=== PATIENT | male | born 1945 | race Two or more races ===

== ENCOUNTER → 2017-07-08 | Outpatient (REF) | payer MEDICARE, OTHER ==
[2017-07-09 14:15] LABS: PSA TOTAL 2.6 ng/mL (0.0-4.0)
== END ==
LOC: M SFHCCLAY 07:27
PROVIDERS: ATTEND Nurse Practitioner Family
DX: N40.1 Benign prostatic hyperplasia with lower urinary tract symptoms (principal)

== ENCOUNTER → 2017-07-14 | Outpatient (REF) | payer MEDICARE, OTHER ==
[2017-07-14 12:34] LABS: MEAN CORPUSCULAR HEMOGLOBIN 30.2 pg (27.0-33.0); MEAN CORPUSCULAR HGB CONC 33.6 g/dl (32.0-36.5); MEAN CORPUSCULAR VOLUME 89.7 fl (80.0-96.0); RED CELL DISTRIBUTION WIDTH 13.5 % (11.5-14.5)
[2017-07-14 12:57] LABS: ALBUMIN 3.4 GM/DL (3.2-5.2); ALKALINE PHOSPHATASE 153 U/L (45-117); ALT/SGPT 23 U/L (12-78); ANION GAP 11 MEQ/L (8-16); AST/SGOT 8 U/L (15-37); BILIRUBIN,TOTAL 0.4 MG/DL (0.2-1.0); BLOOD UREA NITROGEN 23 MG/DL (7-18); CARBON DIOXIDE LEVEL 26 MEQ/L (21-32); CHLORIDE LEVEL 106 MEQ/L (98-107); CHOLESTEROL LEVEL 170 MG/DL (<200); CREATININE FOR GFR 0.94 MG/DL (0.70-1.30); FREE T4 1.32 NG/DL (0.76-1.46); GLOMERULAR FILTRATION RATE > 60.0 (>42); GLUCOSE, FASTING 157 MG/DL (83-110); POTASSIUM SERUM 4.3 MEQ/L (3.5-5.1); SODIUM LEVEL 143 MEQ/L (136-145); TOTAL PROTEIN 6.8 GM/DL (6.4-8.2); TRIGLYCERIDES LEVEL 93 MG/DL (<150)
== END ==
LOC: M LABDRAWC 11:41
PROVIDERS: ATTEND General Practice
DX: E78.00 Pure hypercholesterolemia, unspecified (principal); E11.9 Type 2 diabetes mellitus without complications; F32.9 Major depressive disorder, single episode, unspecified; K21.9 Gastro-esophageal reflux disease without esophagitis

== ENCOUNTER 2018-08-20 11:44 | Observation (INO) | payer MEDICARE, OTHER ==
[2018-08-20] MEDS: MOM 30ML SUSPENSION UDC PO (09:00)
[2018-08-20] MEDS ORDERED: ISOVUE-370 76% 100ML VIAL (Q9967) As Ordered (12:08)
[2018-08-20 12:15] LABS: HEMATOCRIT 28.1 % (42.0-52.0); HEMOGLOBIN 8.5 g/dl (13.5-17.5); MEAN CORPUSCULAR HEMOGLOBIN 23.7 pg (27.0-33.0); MEAN CORPUSCULAR HGB CONC 30.2 g/dl (32.0-36.5); MEAN CORPUSCULAR VOLUME 78.3 fl (80.0-96.0); PLATELET COUNT, AUTOMATED 281 10^3/uL (150-450); RED BLOOD COUNT 3.59 10^6/uL (4.30-6.10); RED CELL DISTRIBUTION WIDTH 15.9 % (11.5-14.5)
[2018-08-20] MEDS: NS 1,000 ML IV ×3 (12:15→16:15)
[2018-08-20 12:23] LABS: INR 1.04; PROTHROMBIN TIME 13.7 SECONDS (12.1-14.4)
[2018-08-20] MEDS: IBUPROFEN 600 MG TAB PO (12:30)
[2018-08-20 12:32] LABS: ANION GAP 6 MEQ/L (8-16); BLOOD UREA NITROGEN 22 MG/DL (7-18); CALCIUM LEVEL 8.3 MG/DL (8.8-10.2); CARBON DIOXIDE LEVEL 25 MEQ/L (21-32); CHLORIDE LEVEL 109 MEQ/L (98-107); CREATININE FOR GFR 1.14 MG/DL (0.70-1.30); GLOMERULAR FILTRATION RATE > 60.0 (>42); GLUCOSE, FASTING 211 MG/DL (70-100); POTASSIUM SERUM 4.6 MEQ/L (3.5-5.1); SODIUM LEVEL 140 MEQ/L (136-145)
[2018-08-20 13:36] LABS: CPK CREATINE PHOSPHOKINASE 237 U/L (39-308); MB/CK RELATIVE INDEX 1.14 (< OR =4); TROPONIN I < 0.02 NG/ML (< 0.10)
[2018-08-20] MEDS: KCL 20MEQ IN D5/NS 1000ML 1,000 ML IV (13:56)
[2018-08-20] MEDS ORDERED: ACETAMINOPHEN TAB 650MG DOSE (2X325MG) PO (14:00)
[2018-08-20] MEDS ORDERED: LEVALBUTEROL 1.25 MG/0.5 ML CONCENTRATE NEB NEB (14:00)
[2018-08-20] MEDS ORDERED: ONDANSETRON 4MG/2ML VIAL (J2405) IV (14:00)
[2018-08-20] MEDS ORDERED: NITROGLYCERIN 0.4 MG SUBL TABLET SL (14:00)
[2018-08-20] MEDS: LEVALBUTEROL 1.25 MG/0.5 ML CONCENTRATE NEB NEB ×2 (14:30→20:40)
[2018-08-20 16:31] LABS: BEDSIDE GLUCOSE 205 MG/DL (83-110)
[2018-08-20] MEDS: ISOSORBIDE MON. (IMDUR) 30 MG XR TAB PO (16:37)
[2018-08-20] MEDS ORDERED: GLUCAGON FOR INJ 1 MG VIAL (J1610) SC (16:45)
[2018-08-20] MEDS ORDERED: DEXTROSE 50% 50 ML SYRINGE IV (16:45)
[2018-08-20] MEDS ORDERED: GLUCOSE 4 GM CHEW TABLET PO (16:45)
[2018-08-20] MEDS: HumaLOG INSULIN (NovoLOG) PER UNIT SC ×2 (17:48→21:00)
[2018-08-20] MEDS: KETOROLAC 30 MG/ML VIAL (J1885) IV ×2 (17:49→23:25)
[2018-08-20 19:58] LABS: BEDSIDE GLUCOSE 224 MG/DL (83-110)
[2018-08-20] MEDS: FINASTERIDE 5 MG TAB PO (21:11)
[2018-08-20] MEDS: metFORMIN XR 500MG TAB *GLUCOPHAGE XR PO (21:11)
[2018-08-20] MEDS: CARVedilol 6.25 MG TAB PO (21:12)
[2018-08-20] MEDS: DOCUSATE SODIUM 100 MG CAP PO (21:12)
[2018-08-20] MEDS: TAMSULOSIN 0.4 MG CAP PO (21:13)
[2018-08-20] MEDS: LEVEMIR (INSULIN DETEMIR) 1 UNITS/0.01ML SC (21:13)
[2018-08-21] MEDS: LEVALBUTEROL 1.25 MG/0.5 ML CONCENTRATE NEB NEB ×3 (02:06→13:13)
[2018-08-21] MEDS: KETOROLAC 30 MG/ML VIAL (J1885) IV ×2 (05:51→11:41)
[2018-08-21 06:02] LABS: HEMATOCRIT 24.2 % (42.0-52.0); HEMOGLOBIN 7.3 g/dl (13.5-17.5); MEAN CORPUSCULAR HEMOGLOBIN 23.2 pg (27.0-33.0); MEAN CORPUSCULAR HGB CONC 30.2 g/dl (32.0-36.5); MEAN CORPUSCULAR VOLUME 76.8 fl (80.0-96.0); PLATELET COUNT, AUTOMATED 235 10^3/uL (150-450); RED BLOOD COUNT 3.15 10^6/uL (4.30-6.10); RED CELL DISTRIBUTION WIDTH 15.9 % (11.5-14.5); WHITE BLOOD COUNT 7.4 10^3/uL (4.0-10.0)
[2018-08-21 06:21] LABS: BEDSIDE GLUCOSE 145 MG/DL (83-110)
[2018-08-21] MEDS: MOM 30ML SUSPENSION UDC PO (08:04)
[2018-08-21] MEDS: PANTOPRAZOLE 40MG TAB (PROTONIX) PO (08:12)
[2018-08-21] MEDS: metFORMIN XR 500MG TAB *GLUCOPHAGE XR PO (08:12)
[2018-08-21] MEDS: HumaLOG INSULIN (NovoLOG) PER UNIT SC ×2 (08:12→11:42)
[2018-08-21] MEDS: ASPIRIN 81 MG ENTERIC TAB PO (08:13)
[2018-08-21] MEDS: TAMSULOSIN 0.4 MG CAP PO (08:13)
[2018-08-21] MEDS: CARVedilol 6.25 MG TAB PO (08:13)
[2018-08-21] MEDS: LOSARTAN 50 MG TAB PO (08:13)
[2018-08-21] MEDS: ISOSORBIDE MON. (IMDUR) 30 MG XR TAB PO (08:13)
[2018-08-21] MEDS: GLIMEPIRIDE 2 MG TAB PO (08:13)
[2018-08-21] MEDS: CLOPIDOGREL 75 MG TAB PO (08:14)
[2018-08-21] MEDS: LEVEMIR (INSULIN DETEMIR) 1 UNITS/0.01ML SC (08:14)
[2018-08-21] MEDS: DOCUSATE SODIUM 100 MG CAP PO (08:15)
[2018-08-21] MEDS: ANALGESIC BALM CRM 120 GM TOP ×2 (09:00→11:28)
[2018-08-21 10:59] LABS: IMMEDIATE SPIN CROSSMATCH 1 1
[2018-08-21 11:31] LABS: BEDSIDE GLUCOSE 202 MG/DL (83-110)
== END 2018-08-21 14:38 | disposition home or self-care (01) ==
LOC: M ED 11:44 → M ED INP 15:36 → M MSPAV 16:10
DX: S22.31XA Fracture of one rib, right side, initial encounter for closed fracture (principal); S27.0XXA Traumatic pneumothorax, initial encounter; S09.90XA Unspecified injury of head, initial encounter; W13.2XXA Fall from, out of or through roof, initial encounter; Y92.89 Other specified places as the place of occurrence of the external cause; Y93.9 Activity, unspecified; D64.9 Anemia, unspecified; E11.9 Type 2 diabetes mellitus without complications; I10 Essential (primary) hypertension; I25.2 Old myocardial infarction; Z79.02 Long term (current) use of antithrombotics/antiplatelets; Z88.0 Allergy status to penicillin; Z88.2 Allergy status to sulfonamides
CPT/HCPCS: 36430

== ENCOUNTER → 2019-04-05 | Outpatient (REF) | payer MEDICARE, OTHER ==
[~2019-04-05] MED LIST: BYET1INJ SC; CARV6.25 PO; CLOP75TA2 PO; ECOT81TA5 PO; FINA5TAB2 PO; FLOM0.4C39 PO; GLIM4TAB PO; GLUCTAB PO; INSUDET SC; ISOS30TA4 PO; LOSA100T50 PO; MAGO400T PO; NITR4TASL SL; OMEP10CASR PO; OMEP20CA3 PO; VITMTA PO
== END ==
LOC: M SFHCCLAY 07:28
PROVIDERS: ATTEND Nurse Practitioner Family
DX: R97.20 Elevated prostate specific antigen [PSA] (principal)

== ENCOUNTER → 2019-07-19 | Outpatient (REF) | payer MEDICARE, OTHER ==
[~2019-07-19] MED LIST changes: -OMEP20CA3 PO; +OMEP20CA4 PO
[2019-07-19 11:26] LABS: APPEARANCE, URINE CLEAR (CLEAR); BACTERIA, URINE AUTO NEGATIVE (NEGATIVE); BILIRUBIN, URINE AUTO NEGATIVE (NEGATIVE); BLOOD, URINE BLOOD NEGATIVE (NEGATIVE); COLOR, URINE YELLOW (YELLOW); GLUCOSE, URINE (UA) AUTO 1+ mg/dL (NEGATIVE); HEMATOCRIT 34.3 % (42.0-52.0); HEMOGLOBIN 10.5 g/dl (13.5-17.5); KETONE, URINE AUTO NEGATIVE (NEGATIVE); LEUKOCYTE ESTERASE, URINE AUTO NEGATIVE (NEGATIVE); MEAN CORPUSCULAR HEMOGLOBIN 24.7 pg (27.0-33.0); MEAN CORPUSCULAR HGB CONC 30.6 g/dl (32.0-36.5); MEAN CORPUSCULAR VOLUME 80.7 fl (80.0-96.0); NITRITE, URINE AUTO NEGATIVE (NEGATIVE); PLATELET COUNT, AUTOMATED 260 10^3/uL (150-450); PROTEIN, URINE AUTO NEGATIVE (NEGATIVE); RBC, URINE AUTO 0 /HPF (0-3); RED BLOOD COUNT 4.25 10^6/uL (4.30-6.10); SPECIFIC GRAVITY URINE AUTO 1.016 (1.002-1.035); SQUAMOUS EPITHELIAL CELL UR AU 0 /HPF (0-6); UROBILINOGEN, URINE AUTO 0.2 mg/dL (0.0-2.0); WBC, URINE AUTO 0 /HPF (0-3); WHITE BLOOD COUNT 4.9 10^3/uL (4.0-10.0)
[2019-07-19 11:39] LABS: ALBUMIN 3.5 GM/DL (3.2-5.2); ALT/SGPT 16 U/L (12-78); BILIRUBIN,TOTAL 0.3 MG/DL (0.2-1.0); BLOOD UREA NITROGEN 21 MG/DL (7-18); CALCIUM LEVEL 8.8 MG/DL (8.8-10.2); CARBON DIOXIDE LEVEL 26 MEQ/L (21-32); CHLORIDE LEVEL 111 MEQ/L (98-107); CHOLESTEROL LEVEL 145 MG/DL (<200); CHOLESTEROL RISK RATIO 2.959 (<5); CREATININE FOR GFR 1.09 MG/DL (0.70-1.30); FREE T4 1.25 NG/DL (0.76-1.46); GLOMERULAR FILTRATION RATE > 60.0 (>42); GLUCOSE, FASTING 105 MG/DL (70-100); HDL CHOLESTEROL 49 MG/DL (>40); LDL CHOLESTEROL 78 MG/DL (<100); NON-HDL-C 96 MG/DL; POTASSIUM SERUM 4.6 MEQ/L (3.5-5.1); SODIUM LEVEL 144 MEQ/L (136-145); TOTAL PROTEIN 6.3 GM/DL (6.4-8.2); TRIGLYCERIDES LEVEL 89 MG/DL (<150)
[2019-07-19 11:42] LABS: VITAMIN B12 LEVEL 326 PG/ML (247-911)
[2019-07-19 11:45] LABS: HEMOGLOBIN A1c 7.2 %
[2019-07-19 12:16] LABS: MALB URINE SIEMENS 38.2 MG/L
== END ==
LOC: M LABDRAWC 11:08
PROVIDERS: ATTEND General Practice
DX: E11.9 Type 2 diabetes mellitus without complications (principal); D64.9 Anemia, unspecified; F32.9 Major depressive disorder, single episode, unspecified; E78.00 Pure hypercholesterolemia, unspecified

== ENCOUNTER → 2020-04-23 | Outpatient (REF) | payer MEDICARE, OTHER ==
[~2020-04-23] MED LIST changes: -GLIM4TAB PO; +GLIM4TAB5 PO; +ISOS1TAB35 PO; -ISOS30TA4 PO; +OMEP1CAP73 PO; -OMEP20CA4 PO
== END ==
LOC: M SFHCCLAY 09:32
PROVIDERS: ATTEND Nurse Practitioner Family
DX: Z12.5 Encounter for screening for malignant neoplasm of prostate (principal); R97.20 Elevated prostate specific antigen [PSA]

== ENCOUNTER → 2020-07-29 | Outpatient (REF) | payer MEDICARE, OTHER ==
[~2020-07-29] MED LIST changes: -ISOS1TAB35 PO; +ISOS30TA4 PO
== END ==
LOC: M SFHCCLAY 16:14
PROVIDERS: ATTEND Nurse Practitioner Family
DX: R97.20 Elevated prostate specific antigen [PSA] (principal)

== ENCOUNTER → 2021-03-13 | Outpatient (REF) | payer MEDICARE, OTHER ==
[~2021-03-13] MED LIST changes: +ISOS1TAB35 PO; -ISOS30TA4 PO
[2021-03-13 10:31] LABS: APPEARANCE, URINE CLEAR (CLEAR); BACTERIA, URINE AUTO NEGATIVE (NEGATIVE); BILIRUBIN, URINE AUTO NEGATIVE (NEGATIVE); BLOOD, URINE BLOOD NEGATIVE (NEGATIVE); COLOR, URINE YELLOW (YELLOW); GLUCOSE, URINE (UA) AUTO NEGATIVE (NEGATIVE); HEMATOCRIT 27.6 % (42.0-52.0); KETONE, URINE AUTO NEGATIVE (NEGATIVE); LEUKOCYTE ESTERASE, URINE AUTO NEGATIVE (NEGATIVE); MEAN CORPUSCULAR HEMOGLOBIN 21.5 pg (27.0-33.0); MEAN CORPUSCULAR VOLUME 74.2 fl (80.0-96.0); NITRITE, URINE AUTO NEGATIVE (NEGATIVE); PLATELET COUNT, AUTOMATED 363 10^3/uL (150-450); PROTEIN, URINE AUTO NEGATIVE (NEGATIVE); RBC, URINE AUTO 1 /HPF (0-3); RED BLOOD COUNT 3.72 10^6/uL (4.30-6.10); SPECIFIC GRAVITY URINE AUTO 1.012 (1.002-1.035); SQUAMOUS EPITHELIAL CELL UR AU 0 /HPF (0-6); UROBILINOGEN, URINE AUTO 0.2 mg/dL (0.0-2.0); WBC, URINE AUTO 5 /HPF (0-3); WHITE BLOOD COUNT 4.8 10^3/uL (4.0-10.0)
[2021-03-13 11:02] LABS: HEMOGLOBIN A1c 7.8 %
[2021-03-13 11:09] LABS: ALT/SGPT 16 U/L (12-78); BILIRUBIN,TOTAL 0.3 MG/DL (0.2-1.0); BLOOD UREA NITROGEN 15 MG/DL (7-18); CALCIUM LEVEL 8.6 MG/DL (8.8-10.2); CARBON DIOXIDE LEVEL 25 MEQ/L (21-32); CHLORIDE LEVEL 110 MEQ/L (98-107); CREATININE FOR GFR 0.91 MG/DL (0.70-1.30); GLOMERULAR FILTRATION RATE > 60.0 (>42); GLUCOSE, FASTING 86 MG/DL (70-100); POTASSIUM SERUM 4.4 MEQ/L (3.5-5.1); SODIUM LEVEL 141 MEQ/L (136-145)
[2021-03-13 11:10] LABS: ALBUMIN 3.4 GM/DL (3.2-5.2); CHOLESTEROL LEVEL 158 MG/DL (<200); CHOLESTEROL RISK RATIO 2.771 (<5); FREE T4 1.35 NG/DL (0.76-1.46); HDL CHOLESTEROL 57 MG/DL (>40); LDL CHOLESTEROL 84 MG/DL (<100); NON-HDL-C 101 MG/DL; TOTAL PROTEIN 6.6 GM/DL (6.4-8.2); TRIGLYCERIDES LEVEL 83 MG/DL (<150); VITAMIN B12 LEVEL 341 PG/ML (247-911)
[2021-03-13 11:18] LABS: CREATININE, URINE 75.9 MG/DL; MAU/CREAT RATIO 64.5 MCG/MG (0.0-30.0)
== END ==
LOC: M LABDRAWC 07:49
PROVIDERS: ATTEND General Practice
DX: E11.9 Type 2 diabetes mellitus without complications (principal); D64.9 Anemia, unspecified; E78.00 Pure hypercholesterolemia, unspecified; F32.9 Major depressive disorder, single episode, unspecified

== ENCOUNTER → 2021-08-07 | Outpatient (REF) | payer MEDICARE, OTHER ==
[2021-08-07 11:43] LABS: APPEARANCE, URINE CLEAR (CLEAR); BACTERIA, URINE AUTO NEGATIVE (NEGATIVE); BILIRUBIN, URINE AUTO NEGATIVE (NEGATIVE); BLOOD, URINE BLOOD NEGATIVE (NEGATIVE); COLOR, URINE STRAW (YELLOW); GLUCOSE, URINE (UA) AUTO NEGATIVE (NEGATIVE); KETONE, URINE AUTO NEGATIVE (NEGATIVE); LEUKOCYTE ESTERASE, URINE AUTO NEGATIVE (NEGATIVE); NITRITE, URINE AUTO NEGATIVE (NEGATIVE); PROTEIN, URINE AUTO NEGATIVE (NEGATIVE); RBC, URINE AUTO 0 /HPF (0-3); SQUAMOUS EPITHELIAL CELL UR AU 0 /HPF (0-6); UROBILINOGEN, URINE AUTO 0.2 mg/dL (0.0-2.0); WBC, URINE AUTO 0 /HPF (0-3)
[2021-08-07 11:45] LABS: HEMATOCRIT 29.3 % (42.0-52.0); HEMOGLOBIN 8.6 g/dl (13.5-17.5); MEAN CORPUSCULAR HEMOGLOBIN 22.6 pg (27.0-33.0); MEAN CORPUSCULAR HGB CONC 29.4 g/dl (32.0-36.5); MEAN CORPUSCULAR VOLUME 76.9 fl (80.0-96.0); PLATELET COUNT, AUTOMATED 323 10^3/uL (150-450); RED BLOOD COUNT 3.81 10^6/uL (4.30-6.10); WHITE BLOOD COUNT 4.9 10^3/uL (4.0-10.0)
[2021-08-07 12:12] LABS: HEMOGLOBIN A1c 7.8 %
[2021-08-07 12:18] LABS: ALBUMIN 3.4 GM/DL (3.2-5.2); ALT/SGPT 13 U/L (12-78); BILIRUBIN,TOTAL 0.4 MG/DL (0.2-1.0); BLOOD UREA NITROGEN 19 MG/DL (7-18); CALCIUM LEVEL 8.5 MG/DL (8.8-10.2); CARBON DIOXIDE LEVEL 28 MEQ/L (21-32); CHLORIDE LEVEL 109 MEQ/L (98-107); CHOLESTEROL LEVEL 154 MG/DL (<200); CHOLESTEROL RISK RATIO 2.851 (<5); CREATININE FOR GFR 1.14 MG/DL (0.70-1.30); FREE T4 1.26 NG/DL (0.76-1.46); GLOMERULAR FILTRATION RATE > 60.0 (>42); GLUCOSE, FASTING 97 MG/DL (70-100); HDL CHOLESTEROL 54 MG/DL (>40); LDL CHOLESTEROL 77 MG/DL (<100); MALB URINE SIEMENS 25.3 MG/L; MAU/CREAT RATIO 47.7 MCG/MG (0.0-30.0); NON-HDL-C 100 MG/DL; POTASSIUM SERUM 4.6 MEQ/L (3.5-5.1); SODIUM LEVEL 140 MEQ/L (136-145); TOTAL PROTEIN 6.6 GM/DL (6.4-8.2); TRIGLYCERIDES LEVEL 116 MG/DL (<150); VITAMIN B12 LEVEL 339 PG/ML (247-911)
== END ==
LOC: M LABDRAWC 11:22
PROVIDERS: ATTEND General Practice
DX: E11.9 Type 2 diabetes mellitus without complications (principal); K21.9 Gastro-esophageal reflux disease without esophagitis; F32.9 Major depressive disorder, single episode, unspecified; E78.00 Pure hypercholesterolemia, unspecified

== ENCOUNTER → 2022-03-20 | Outpatient (REF) | payer MEDICARE, OTHER ==
[~2022-03-20] MED LIST changes: +AMLO1TAB24 PO; +ATOR40TA75 PO; +CARV25TA PO; +IRON27TA2 PO; +LOSA100T45 PO; -LOSA100T50 PO; +MAGN400T2 PO; +METF-838 PO
[2022-03-20 11:38] LABS: APPEARANCE, URINE CLEAR (CLEAR); BACTERIA, URINE AUTO NEGATIVE (NEGATIVE); BILIRUBIN, URINE AUTO NEGATIVE (NEGATIVE); BLOOD, URINE BLOOD NEGATIVE (NEGATIVE); COLOR, URINE YELLOW (YELLOW); GLUCOSE, URINE (UA) AUTO 3+ mg/dL (NEGATIVE); KETONE, URINE AUTO NEGATIVE (NEGATIVE); LEUKOCYTE ESTERASE, URINE AUTO NEGATIVE (NEGATIVE); NITRITE, URINE AUTO NEGATIVE (NEGATIVE); PROTEIN, URINE AUTO NEGATIVE (NEGATIVE); RBC, URINE AUTO 0 /HPF (0-3); SPECIFIC GRAVITY URINE AUTO 1.013 (1.002-1.035); SQUAMOUS EPITHELIAL CELL UR AU 0 /HPF (0-6); UROBILINOGEN, URINE AUTO 0.2 mg/dL (0.0-2.0); WBC, URINE AUTO 0 /HPF (0-3)
[2022-03-20 11:41] LABS: HEMATOCRIT 31.9 % (42.0-52.0); MEAN CORPUSCULAR HEMOGLOBIN 26.6 pg (27.0-33.0); MEAN CORPUSCULAR HGB CONC 31.3 g/dl (32.0-36.5); MEAN CORPUSCULAR VOLUME 84.8 fl (80.0-96.0); PLATELET COUNT, AUTOMATED 299 10^3/uL (150-450); RED BLOOD COUNT 3.76 10^6/uL (4.30-6.10); WHITE BLOOD COUNT 4.3 10^3/uL (4.0-10.0)
[2022-03-20 12:16] LABS: ALBUMIN 3.4 GM/DL (3.2-5.2); ALT/SGPT 15 U/L (12-78); BILIRUBIN,TOTAL 0.3 MG/DL (0.2-1.0); BLOOD UREA NITROGEN 23 MG/DL (7-18); CALCIUM LEVEL 9.2 MG/DL (8.8-10.2); CARBON DIOXIDE LEVEL 28 MEQ/L (21-32); CHLORIDE LEVEL 113 MEQ/L (98-107); CHOLESTEROL LEVEL 162 MG/DL (<200); CHOLESTEROL RISK RATIO 3.446 (<5); CREATININE FOR GFR 1.13 MG/DL (0.70-1.30); GLOMERULAR FILTRATION RATE > 60.0 (>42); GLUCOSE, FASTING 116 MG/DL (70-100); HDL CHOLESTEROL 47 MG/DL (>40); HEMOGLOBIN A1c 8.6 %; LDL CHOLESTEROL 95 MG/DL (<100); NON-HDL-C 115 MG/DL; POTASSIUM SERUM 4.8 MEQ/L (3.5-5.1); SODIUM LEVEL 144 MEQ/L (136-145); TOTAL PROTEIN 6.6 GM/DL (6.4-8.2); TRIGLYCERIDES LEVEL 102 MG/DL (<150); VITAMIN B12 LEVEL 854 PG/ML (247-911)
[2022-03-20 12:17] LABS: CREATININE, URINE 86.7 MG/DL; MALB URINE SIEMENS 73.1 MG/L; MAU/CREAT RATIO 84.3 MCG/MG (0.0-30.0)
== END ==
LOC: M LABDRAWC 11:26
PROVIDERS: ATTEND General Practice
DX: E11.9 Type 2 diabetes mellitus without complications (principal); K21.9 Gastro-esophageal reflux disease without esophagitis; M62.838 Other muscle spasm; F32.9 Major depressive disorder, single episode, unspecified; E78.00 Pure hypercholesterolemia, unspecified

== ENCOUNTER 2022-03-21 18:02 | Observation (INO) | payer MEDICARE, OTHER ==
[~2022-03-21] VITALS: Ht 175.3 cm; Wt 86.0 kg
[~2022-03-21 18:02] MED LIST changes: -AMLO1TAB24 PO; -ATOR40TA75 PO; -CARV25TA PO; -IRON27TA2 PO; -MAGN400T2 PO; -METF-838 PO
[2022-03-21 19:13] LABS: BASO % 0.7 % (0.0-1.0); EOS # 0.3 10^3/uL (0.0-0.5); HEMOGLOBIN 10.1 g/dl (13.5-17.5); LYMPH # 1.2 10^3/uL (1.5-5.0); LYMPH % 20.7 % (24.0-44.0); MEAN CORPUSCULAR HEMOGLOBIN 26.6 pg (27.0-33.0); MEAN CORPUSCULAR HGB CONC 31.6 g/dl (32.0-36.5); MEAN CORPUSCULAR VOLUME 84.4 fl (80.0-96.0); MONO # 0.5 10^3/uL (0.0-0.8); MONO % 8.8 % (2.0-8.0); NEUTROPHILS # 3.6 10^3/uL (1.5-8.5); NEUTROPHILS % 64.6 % (36.0-66.0); PLATELET COUNT, AUTOMATED 272 10^3/uL (150-450); RED BLOOD COUNT 3.79 10^6/uL (4.30-6.10); WHITE BLOOD COUNT 5.6 10^3/uL (4.0-10.0)
[2022-03-21 19:35] LABS: CALCIUM LEVEL 8.9 MG/DL (8.8-10.2); CREATININE FOR GFR 1.33 MG/DL (0.70-1.30); GLOMERULAR FILTRATION RATE 55.4 (>42); INR 0.88; PARTIAL THROMBOPLASTIN TIME 26.8 SECONDS (25.9-37.0); POTASSIUM SERUM 4.1 MEQ/L (3.5-5.1); PROTHROMBIN TIME 12.3 SECONDS (12.7-14.5)
[2022-03-21 19:38] LABS: CK-MB VALUE MASS < 1.0 NG/ML (<3.6); CPK CREATINE PHOSPHOKINASE 42 U/L (39-308); MB/CK RELATIVE INDEX 2.38 (< OR =4)
[2022-03-21] MEDS: INSULIN LISPRO (NovoLOG) PER UNIT SC SCH (21:00)
[2022-03-21] MEDS ORDERED: CARV25TA PO (23:04)
[2022-03-21] MEDS ORDERED: AMLO1TAB24 PO (23:04)
[2022-03-21] MEDS ORDERED: METF-838 PO (23:04)
[2022-03-21] MEDS ORDERED: MAGN400T2 PO (23:04)
[2022-03-21] MEDS ORDERED: IRON27TA2 PO (23:04)
[2022-03-21] MEDS ORDERED: HOME MED LIST COMPLETE! XX SCH (23:05)
[2022-03-21] MEDS ORDERED: MAALOX 30 ML SUSP *UDC PO PRN (23:40)
[2022-03-21] MEDS ORDERED: MOM 30ML SUSPENSION UDC PO PRN (23:40)
[2022-03-21] MEDS ORDERED: NITROGLYCERIN 0.4 MG SUBL TABLET SL PRN (23:45)
[2022-03-21] MEDS ORDERED: ATORVASTATIN 20 MG TAB PO ONE (23:45)
[2022-03-21] MEDS ORDERED: NS 1,000 ML IV ONE (23:45)
[2022-03-22 00:03] LABS: CHOLESTEROL RISK RATIO 3.3 (<5)
[2022-03-22] MEDS ORDERED: GLUCOSE 4GM CHEW TABLET PO PRN (00:05)
[2022-03-22] MEDS ORDERED: GLUCAGON INJ 1MG VIAL SC PRN (00:05)
[2022-03-22] MEDS ORDERED: DEXTROSE 50% 50 ML SYRINGE IV PRN (00:05)
[2022-03-22] MEDS: FINASTERIDE 5MG TAB PO SCH ×2 (00:29→22:03)
[2022-03-22] MEDS: ACETAMINOPHEN TAB 650MG DOSE (2X325MG) PO PRN ×3 (00:30→22:11)
[2022-03-22 00:31] LABS: APPEARANCE, URINE CLEAR (CLEAR); BACTERIA, URINE AUTO NEGATIVE (NEGATIVE); BILIRUBIN, URINE AUTO NEGATIVE (NEGATIVE); BLOOD, URINE BLOOD NEGATIVE (NEGATIVE); COLOR, URINE YELLOW (YELLOW); GLUCOSE, URINE (UA) AUTO 2+ mg/dL (NEGATIVE); KETONE, URINE AUTO NEGATIVE (NEGATIVE); LEUKOCYTE ESTERASE, URINE AUTO NEGATIVE (NEGATIVE); NITRITE, URINE AUTO NEGATIVE (NEGATIVE); PROTEIN, URINE AUTO NEGATIVE (NEGATIVE); RBC, URINE AUTO 0 /HPF (0-3); SQUAMOUS EPITHELIAL CELL UR AU 0 /HPF (0-6); UROBILINOGEN, URINE AUTO 0.2 mg/dL (0.0-2.0); WBC, URINE AUTO 1 /HPF (0-3)
[2022-03-22 00:55] LABS: RSV AMPLIFICATION NEGATIVE (NEGATIVE)
[2022-03-22 00:59] LABS: POTASSIUM RANDOM URINE 22.8 MEQ/L; TOTAL PROTEIN,RANDOM URINE 13.7 MG/DL (0.0-12.0)
[2022-03-22] MEDS ORDERED: **hydrALAZINE HCL** 25 MG TAB PO ONE (01:30)
[2022-03-22 04:59] VITALS: BP 160/59
[2022-03-22 06:46] LABS: HEMOGLOBIN 9.8 g/dl (13.5-17.5); MEAN CORPUSCULAR HEMOGLOBIN 26.6 pg (27.0-33.0); MEAN CORPUSCULAR HGB CONC 31.6 g/dl (32.0-36.5); MEAN CORPUSCULAR VOLUME 84.2 fl (80.0-96.0); PLATELET COUNT, AUTOMATED 260 10^3/uL (150-450); RED BLOOD COUNT 3.68 10^6/uL (4.30-6.10)
[2022-03-22 07:05] LABS: BLOOD UREA NITROGEN 20 MG/DL (7-18); CALCIUM LEVEL 9.1 MG/DL (8.8-10.2); CARBON DIOXIDE LEVEL 25 MEQ/L (21-32); CHLORIDE LEVEL 111 MEQ/L (98-107); GLOMERULAR FILTRATION RATE > 60.0 (>42); GLUCOSE, FASTING 240 MG/DL (70-100); MAGNESIUM LEVEL 1.9 MG/DL (1.8-2.4); POTASSIUM SERUM 4.4 MEQ/L (3.5-5.1); SODIUM LEVEL 142 MEQ/L (136-145)
[2022-03-22 07:06] LABS: HEMOGLOBIN A1c 8.3 %
[2022-03-22] MEDS: INSULIN LISPRO (NovoLOG) PER UNIT SC SCH ×4 (08:29→21:00)
[2022-03-22] MEDS: LEVEMIR (INSULIN DETEMIR) 1 UNITS/0.01ML SC SCH (08:30)
[2022-03-22] MEDS: LOSARTAN 50MG TABLET PO SCH (08:30)
[2022-03-22] MEDS: CARVedilol 12.5 MG TAB PO SCH ×2 (08:31→22:04)
[2022-03-22] MEDS: OMEPRAZOLE 20MG CAP PO SCH (08:31)
[2022-03-22] MEDS: TAMSULOSIN 0.4 MG CAP PO SCH ×2 (08:32→22:03)
[2022-03-22] MEDS: DOCUSATE SODIUM 100MG CAPSULE PO SCH ×2 (08:32→22:00)
[2022-03-22] MEDS: MAGNESIUM OXIDE 400MG TAB (MAG-OX) PO SCH (08:32)
[2022-03-22] MEDS: ASPIRIN 81MG ENTERIC TABLET PO SCH (08:32)
[2022-03-22] MEDS: CLOPIDOGREL 75 MG TAB PO SCH (08:32)
[2022-03-22] MEDS: ENOXAPARIN 40MG/0.4ML SYRINGE (J1650 PER 10MG) SC SCH (09:57)
[2022-03-22 14:00] VITALS: BP 162/62
[2022-03-22] MEDS ORDERED: ISOSORBIDE MON. (IMDUR) 30 MG XR TAB PO SCH (21:00)
[2022-03-22] MEDS ORDERED: amLODIPine 5 MG TAB PO SCH (21:00)
[2022-03-22] MEDS ORDERED: ATORVASTATIN 20 MG TAB PO SCH (21:00)
[2022-03-22 22:00] VITALS: BP 159/59
[2022-03-23 06:00] VITALS: BP 138/57
[2022-03-23] MEDS: ENOXAPARIN 40MG/0.4ML SYRINGE (J1650 PER 10MG) SC SCH (08:06)
[2022-03-23] MEDS: LEVEMIR (INSULIN DETEMIR) 1 UNITS/0.01ML SC SCH (08:07)
[2022-03-23] MEDS: INSULIN LISPRO (NovoLOG) PER UNIT SC SCH ×2 (08:08→12:01)
[2022-03-23 08:09] VITALS: BP 141/58
[2022-03-23] MEDS: ACETAMINOPHEN TAB 650MG DOSE (2X325MG) PO PRN (08:09)
[2022-03-23] MEDS: LOSARTAN 50MG TABLET PO SCH (08:09)
[2022-03-23] MEDS: ASPIRIN 81MG ENTERIC TABLET PO SCH (08:10)
[2022-03-23] MEDS: CARVedilol 12.5 MG TAB PO SCH (08:10)
[2022-03-23] MEDS: MAGNESIUM OXIDE 400MG TAB (MAG-OX) PO SCH (08:10)
[2022-03-23] MEDS: DOCUSATE SODIUM 100MG CAPSULE PO SCH (08:10)
[2022-03-23] MEDS ORDERED: ATOR40TA75 PO (08:10)
[2022-03-23] MEDS: CLOPIDOGREL 75 MG TAB PO SCH (08:11)
[2022-03-23] MEDS: TAMSULOSIN 0.4 MG CAP PO SCH (08:11)
[2022-03-23] MEDS: OMEPRAZOLE 20MG CAP PO SCH (08:11)
== END 2022-03-23 12:36 | disposition home or self-care (01) ==
LOC: M ED 18:02 → EDBD 18:02 → M ED INP 18:03 → M MSPAV 03-22 02:22
PROVIDERS: ADMIT Internal Medicine; ATTEND Internal Medicine
DX: I63.9 Cerebral infarction, unspecified (principal); I65.21 Occlusion and stenosis of right carotid artery; R29.700 NIHSS score 0; I11.9 Hypertensive heart disease without heart failure; N17.9 Acute kidney failure, unspecified; I25.2 Old myocardial infarction; E11.9 Type 2 diabetes mellitus without complications; I25.10 Atherosclerotic heart disease of native coronary artery without angina pectoris; K21.9 Gastro-esophageal reflux disease without esophagitis; N40.0 Benign prostatic hyperplasia without lower urinary tract symptoms; Z98.61 Coronary angioplasty status; Z87.891 Personal history of nicotine dependence; Z79.899 Other long term (current) drug therapy; Z79.82 Long term (current) use of aspirin; Z79.02 Long term (current) use of antithrombotics/antiplatelets; Z79.4 Long term (current) use of insulin; Z79.84 Long term (current) use of oral hypoglycemic drugs; Z88.0 Allergy status to penicillin; Z88.2 Allergy status to sulfonamides
CPT/HCPCS: 36415; 70450; 70544; 70547; 70551; 71045; 80048; 80061; 81001; 82550; 82553; 82570; 83036; 83735; 83935; 84133; 84156; 84300; 84484; 85025; 85027; 85610; 85730; 87631; 93005; 93041; 93306; 94760; 96360; 96361; 96372; 97161; 97165; 99285; G0378; J1650; J1815

== ENCOUNTER → 2022-06-02 | Outpatient (REF) | payer MEDICARE, OTHER ==
[~2022-06-02] MED LIST changes: +AMLO1TAB24 PO; +ATOR40TA75 PO; +CARV25TA PO; +IRON27TA2 PO; +MAGN400T2 PO; +METF-838 PO
[2022-06-02 13:22] LABS: HEMATOCRIT 28.9 % (42.0-52.0); MEAN CORPUSCULAR HEMOGLOBIN 26.3 pg (27.0-33.0); MEAN CORPUSCULAR HGB CONC 31.1 g/dl (32.0-36.5); MEAN CORPUSCULAR VOLUME 84.5 fl (80.0-96.0); PLATELET COUNT, AUTOMATED 265 10^3/uL (150-450); RED BLOOD COUNT 3.42 10^6/uL (4.30-6.10); WHITE BLOOD COUNT 4.6 10^3/uL (4.0-10.0)
[2022-06-02 13:30] LABS: APPEARANCE, URINE CLEAR (CLEAR); BACTERIA, URINE AUTO NEGATIVE (NEGATIVE); BILIRUBIN, URINE AUTO NEGATIVE (NEGATIVE); BLOOD, URINE BLOOD NEGATIVE (NEGATIVE); COLOR, URINE YELLOW (YELLOW); GLUCOSE, URINE (UA) AUTO 1+ mg/dL (NEGATIVE); KETONE, URINE AUTO NEGATIVE (NEGATIVE); LEUKOCYTE ESTERASE, URINE AUTO NEGATIVE (NEGATIVE); NITRITE, URINE AUTO NEGATIVE (NEGATIVE); PROTEIN, URINE AUTO NEGATIVE (NEGATIVE); RBC, URINE AUTO 0 /HPF (0-3); SPECIFIC GRAVITY URINE AUTO 1.018 (1.002-1.035); SQUAMOUS EPITHELIAL CELL UR AU 0 /HPF (0-6); UROBILINOGEN, URINE AUTO 0.2 mg/dL (0.0-2.0); WBC, URINE AUTO 0 /HPF (0-3)
[2022-06-02 13:44] LABS: ALBUMIN 3.4 GM/DL (3.2-5.2); ALT/SGPT 15 U/L (12-78); BILIRUBIN,TOTAL 0.2 MG/DL (0.2-1.0); BLOOD UREA NITROGEN 22 MG/DL (7-18); CALCIUM LEVEL 9.2 MG/DL (8.8-10.2); CARBON DIOXIDE LEVEL 27 MEQ/L (21-32); CHLORIDE LEVEL 113 MEQ/L (98-107); CHOLESTEROL LEVEL 89 MG/DL (<200); CHOLESTEROL RISK RATIO 2.069 (<5); CREATININE FOR GFR 1.19 MG/DL (0.70-1.30); FREE T4 1.25 NG/DL (0.76-1.46); GLOMERULAR FILTRATION RATE > 60.0 (>42); GLUCOSE, FASTING 73 MG/DL (70-100); HDL CHOLESTEROL 43 MG/DL (>40); LDL CHOLESTEROL 34 MG/DL (<100); NON-HDL-C 46 MG/DL; POTASSIUM SERUM 4.5 MEQ/L (3.5-5.1); SODIUM LEVEL 145 MEQ/L (136-145); TOTAL PROTEIN 6.3 GM/DL (6.4-8.2); TRIGLYCERIDES LEVEL 58 MG/DL (<150)
[2022-06-02 14:04] LABS: HEMOGLOBIN A1c 8.7 %
[2022-06-02 14:32] LABS: VITAMIN B12 LEVEL 877 PG/ML (247-911)
== END ==
LOC: M LABDRAWC 11:39
PROVIDERS: ATTEND General Practice
DX: E11.9 Type 2 diabetes mellitus without complications (principal); K21.9 Gastro-esophageal reflux disease without esophagitis; F32.9 Major depressive disorder, single episode, unspecified; E78.00 Pure hypercholesterolemia, unspecified

== ENCOUNTER → 2022-06-26 | Outpatient (CLI) | payer MEDICARE, OTHER ==
[2022-06-26 13:23] LABS: ALBUMIN 3.2 GM/DL (3.2-5.2); CALCIUM LEVEL 8.9 MG/DL (8.8-10.2); CREATININE FOR GFR 1.82 MG/DL (0.70-1.30); GLOMERULAR FILTRATION RATE 38.5 (>42); PERCENT SATURATION 14.8 % (19.7-50.0); PHOSPHORUS LEVEL 3.2 MG/DL (2.5-4.9); POTASSIUM SERUM 5.1 MEQ/L (3.5-5.1)
== END ==
LOC: M WUC 10:50
PROVIDERS: ATTEND General Practice
DX: I50.32 Chronic diastolic (congestive) heart failure (principal); D64.9 Anemia, unspecified

== ENCOUNTER → 2022-07-07 | Outpatient (REF) | payer MEDICARE, OTHER ==
[2022-07-07 12:07] LABS: ALBUMIN 3.2 GM/DL (3.2-5.2); CALCIUM LEVEL 8.8 MG/DL (8.8-10.2); CREATININE FOR GFR 1.43 MG/DL (0.70-1.30); GLOMERULAR FILTRATION RATE 50.9 (>42); PHOSPHORUS LEVEL 2.9 MG/DL (2.5-4.9); POTASSIUM SERUM 4.8 MEQ/L (3.5-5.1)
== END ==
LOC: M LABDRAWC 11:15
PROVIDERS: ATTEND Internal Medicine Cardiovascular Disease
DX: I11.0 Hypertensive heart disease with heart failure (principal); N17.9 Acute kidney failure, unspecified; I50.32 Chronic diastolic (congestive) heart failure

== ENCOUNTER → 2022-07-14 | Outpatient (REF) | payer MEDICARE, OTHER ==
[2022-07-14 11:27] LABS: APPEARANCE, URINE MANUAL CLEAR (CLEAR); COLOR, URINE MANUAL YELLOW (YELLOW)
[2022-07-14 11:28] LABS: PH,URINE MAN 5.5 UNITS (5.0 - 7.0)
[2022-07-14 11:29] LABS: BILIRUBIN, URINE MANUAL NEGATIVE (NEGATIVE); BLOOD URINE MANUAL NEGATIVE (NEGATIVE); GLUCOSE, URINE (UA) MANUAL NEGATIVE (NEGATIVE); KETONE, URINE MANUAL NEGATIVE (NEGATIVE); LEUKOCYTE ESTERASE, URINE MAN NEGATIVE (NEGATIVE); NITRITE, URINE MANUAL NEGATIVE (NEGATIVE); PROTEIN, URINE MANUAL NEGATIVE (NEGATIVE); SPECIFIC GRAVITY,URINE MANUAL 1.015 (1.002-1.035); UROBILINOGEN, URINE MANUAL NORMAL (NORMAL)
[2022-07-14 11:43] LABS: HEMATOCRIT 31.3 % (42.0-52.0); HEMOGLOBIN 9.8 g/dl (13.5-17.5); MEAN CORPUSCULAR HEMOGLOBIN 27.3 pg (27.0-33.0); MEAN CORPUSCULAR HGB CONC 31.3 g/dl (32.0-36.5); MEAN CORPUSCULAR VOLUME 87.2 fl (80.0-96.0); PLATELET COUNT, AUTOMATED 303 10^3/uL (150-450); RED BLOOD COUNT 3.59 10^6/uL (4.30-6.10); WHITE BLOOD COUNT 6.2 10^3/uL (4.0-10.0)
[2022-07-14 12:06] LABS: ALBUMIN 3.6 GM/DL (3.2-5.2); ALT/SGPT 85 U/L (12-78); BILIRUBIN,TOTAL 0.4 MG/DL (0.2-1.0); BLOOD UREA NITROGEN 29 MG/DL (7-18); CALCIUM LEVEL 9.4 MG/DL (8.8-10.2); CARBON DIOXIDE LEVEL 24 MEQ/L (21-32); CHLORIDE LEVEL 109 MEQ/L (98-107); CHOLESTEROL LEVEL 137 MG/DL (<200); CREATININE FOR GFR 1.18 MG/DL (0.70-1.30); GLOMERULAR FILTRATION RATE > 60.0 (>42); GLUCOSE, FASTING 98 MG/DL (70-100); HDL CHOLESTEROL 64 MG/DL (>40); IRON (FE) 34 UG/DL (65-175); LDL CHOLESTEROL 53 MG/DL (<100); NON-HDL-C 73 MG/DL; PERCENT SATURATION 9.2 % (19.7-50.0); POTASSIUM SERUM 4.5 MEQ/L (3.5-5.1); SODIUM LEVEL 140 MEQ/L (136-145); TOTAL IRON BINDING CAPACITY 371 UG/DL (250-450); TRIGLYCERIDES LEVEL 101 MG/DL (<150)
[2022-07-14 12:47] LABS: VITAMIN B12 LEVEL 1052 PG/ML (247-911)
== END ==
LOC: M LABDRAWC 11:06
PROVIDERS: ATTEND General Practice
DX: E11.9 Type 2 diabetes mellitus without complications (principal); D64.9 Anemia, unspecified; F32.9 Major depressive disorder, single episode, unspecified

== ENCOUNTER → 2022-07-21 | Outpatient (CLI) | payer MEDICARE, OTHER ==
[2022-07-21 18:17] LABS: CALCIUM LEVEL 9.2 MG/DL (8.8-10.2); CREATININE FOR GFR 1.47 MG/DL (0.70-1.30); GLOMERULAR FILTRATION RATE 49.3 (>42); MAGNESIUM LEVEL 1.7 MG/DL (1.8-2.4); POTASSIUM SERUM 5.3 MEQ/L (3.5-5.1)
== END ==
LOC: M PLALAB 14:58
PROVIDERS: ATTEND Physician Assistant
DX: I50.32 Chronic diastolic (congestive) heart failure (principal)

== ENCOUNTER → 2022-08-11 | Outpatient (REF) | payer MEDICARE, OTHER ==
[2022-08-11 11:56] LABS: HEMATOCRIT 28.9 % (42.0-52.0); HEMOGLOBIN 8.9 g/dl (13.5-17.5); MEAN CORPUSCULAR HEMOGLOBIN 27.3 pg (27.0-33.0); MEAN CORPUSCULAR HGB CONC 30.8 g/dl (32.0-36.5); MEAN CORPUSCULAR VOLUME 88.7 fl (80.0-96.0); PLATELET COUNT, AUTOMATED 305 10^3/uL (150-450); RED BLOOD COUNT 3.26 10^6/uL (4.30-6.10); WHITE BLOOD COUNT 5.6 10^3/uL (4.0-10.0)
[2022-08-11 12:13] LABS: APPEARANCE, URINE MANUAL CLEAR (CLEAR); BILIRUBIN, URINE MANUAL NEGATIVE (NEGATIVE); BLOOD URINE MANUAL NEGATIVE (NEGATIVE); COLOR, URINE MANUAL YELLOW (YELLOW); GLUCOSE, URINE (UA) MANUAL 1+(100 MG/DL) mg/dL (NEGATIVE); KETONE, URINE MANUAL NEGATIVE (NEGATIVE); LEUKOCYTE ESTERASE, URINE MAN NEGATIVE (NEGATIVE); NITRITE, URINE MANUAL NEGATIVE (NEGATIVE); PROTEIN, URINE MANUAL NEGATIVE (NEGATIVE); SPECIFIC GRAVITY,URINE MANUAL 1.015 (1.002-1.035); UROBILINOGEN, URINE MANUAL NORMAL (NORMAL)
[2022-08-11 12:44] LABS: ALBUMIN 3.1 GM/DL (3.2-5.2); ALT/SGPT 133 U/L (12-78); BILIRUBIN,TOTAL 0.4 MG/DL (0.2-1.0); BLOOD UREA NITROGEN 31 MG/DL (7-18); CALCIUM LEVEL 8.9 MG/DL (8.8-10.2); CARBON DIOXIDE LEVEL 25 MEQ/L (21-32); CHLORIDE LEVEL 112 MEQ/L (98-107); CHOLESTEROL LEVEL 151 MG/DL (<200); CHOLESTEROL RISK RATIO 1.776 (<5); CREATININE FOR GFR 1.21 MG/DL (0.70-1.30); FREE T4 1.13 NG/DL (0.76-1.46); GLOMERULAR FILTRATION RATE > 60.0 (>42); GLUCOSE, FASTING 154 MG/DL (70-100); HDL CHOLESTEROL 85 MG/DL (>40); IRON (FE) 32 UG/DL (65-175); LDL CHOLESTEROL 55 MG/DL (<100); NON-HDL-C 66 MG/DL; PERCENT SATURATION 8.5 % (19.7-50.0); POTASSIUM SERUM 5.1 MEQ/L (3.5-5.1); SODIUM LEVEL 141 MEQ/L (136-145); TOTAL IRON BINDING CAPACITY 376 UG/DL (250-450); TOTAL PROTEIN 6.6 GM/DL (6.4-8.2); TRIGLYCERIDES LEVEL 54 MG/DL (<150)
[2022-08-11 12:51] LABS: HEMOGLOBIN A1c 8.3 %
[2022-08-14 14:41] LABS: VITAMIN B12 LEVEL 968 PG/ML (247-911)
== END ==
LOC: M LABDRAWC 11:18
PROVIDERS: ATTEND General Practice
DX: E11.9 Type 2 diabetes mellitus without complications (principal); D64.9 Anemia, unspecified; F32.9 Major depressive disorder, single episode, unspecified; E78.00 Pure hypercholesterolemia, unspecified; I10 Essential (primary) hypertension

== ENCOUNTER → 2023-02-26 | Outpatient (REF) | payer MEDICARE, OTHER ==
[2023-02-26 12:05] LABS: HEMATOCRIT 29.8 % (42.0-52.0); MEAN CORPUSCULAR HEMOGLOBIN 23.7 pg (27.0-33.0); MEAN CORPUSCULAR HGB CONC 30.2 g/dl (32.0-36.5); MEAN CORPUSCULAR VOLUME 78.4 fl (80.0-96.0); PLATELET COUNT, AUTOMATED 269 10^3/uL (150-450); WHITE BLOOD COUNT 6.2 10^3/uL (4.0-10.0)
[2023-02-26 12:18] LABS: CREATININE, URINE 74.5 MG/DL
[2023-02-26 12:19] LABS: ALBUMIN 3.4 G/DL (3.2-5.2); ALKALINE PHOSPHATASE 432 U/L (46-116); ALT/SGPT 39 U/L (7.0-40); AST/SGOT 22 U/L (<34); BILIRUBIN,TOTAL 0.5 MG/DL (0.3-1.2); BLOOD UREA NITROGEN 21 MG/DL (9-23); CALCIUM LEVEL 8.5 MG/DL (8.3-10.6); CARBON DIOXIDE LEVEL 28 MMOL/L (20-31); CHLORIDE LEVEL 109 MMOL/L (98-107); CHOLESTEROL LEVEL 123 MG/DL (<200); CREATININE FOR GFR 1.09 MG/DL (0.70-1.30); GLOMERULAR FILTRATION RATE > 60.0 (>42); GLUCOSE, FASTING 74 MG/DL (74-106); HDL CHOLESTEROL 64.4 MG/DL (>40); NON-HDL-C 58.6 MG/DL; POTASSIUM SERUM 3.3 MMOL/L (3.5-5.1); SODIUM LEVEL 143 MMOL/L (136-145); TOTAL PROTEIN 6.7 G/DL (5.7-8.2); TRIGLYCERIDES LEVEL 63 MG/DL (<150)
[2023-02-26 12:20] LABS: MAU/CREAT RATIO 123.4 MCG/MG (0.0-30.0)
[2023-02-26 12:21] LABS: FREE T4 1.18 NG/DL (0.89-1.76); THYROID STIMULATING HORMONE 1.091 uIU/ML (0.55-4.78); VITAMIN B12 LEVEL 429 PG/ML (211-911)
[2023-02-26 12:23] LABS: HEMOGLOBIN A1c 9.8 % (4.0-6.0)
[2023-02-26 12:27] LABS: APPEARANCE, URINE CLEAR (CLEAR); BACTERIA, URINE AUTO NEGATIVE (NEGATIVE); BILIRUBIN, URINE AUTO NEGATIVE (NEGATIVE); BLOOD, URINE BLOOD NEGATIVE (NEGATIVE); COLOR, URINE YELLOW (YELLOW); GLUCOSE, URINE (UA) AUTO 2+ mg/dL (NEGATIVE); KETONE, URINE AUTO NEGATIVE (NEGATIVE); LEUKOCYTE ESTERASE, URINE AUTO NEGATIVE (NEGATIVE); MUCUS, URINE SMALL (NEGATIVE); NITRITE, URINE AUTO NEGATIVE (NEGATIVE); PROTEIN, URINE AUTO 1+ mg/dL (NEGATIVE); RBC, URINE AUTO 0 /HPF (0-3); SPECIFIC GRAVITY URINE AUTO 1.017 (1.002-1.035); SQUAMOUS EPITHELIAL CELL UR AU 0 /HPF (0-6); UROBILINOGEN, URINE AUTO 0.2 mg/dL (0.0-2.0); WBC, URINE AUTO 0 /HPF (0-3)
== END ==
LOC: M LABDRAWC 11:15
PROVIDERS: ATTEND General Practice
DX: K21.9 Gastro-esophageal reflux disease without esophagitis (principal); E11.9 Type 2 diabetes mellitus without complications; F32.9 Major depressive disorder, single episode, unspecified; E78.00 Pure hypercholesterolemia, unspecified

== ENCOUNTER → 2023-04-23 | Outpatient (REF) | payer MEDICARE, OTHER ==
[~2023-04-23] MED LIST changes: -LOSA100T45 PO; +LOSA100T46 PO
[2023-04-23 12:24] LABS: APPEARANCE, URINE CLEAR (CLEAR); BACTERIA, URINE AUTO NEGATIVE (NEGATIVE); BILIRUBIN, URINE AUTO NEGATIVE (NEGATIVE); BLOOD, URINE BLOOD NEGATIVE (NEGATIVE); COLOR, URINE YELLOW (YELLOW); GLUCOSE, URINE (UA) AUTO 1+ mg/dL (NEGATIVE); KETONE, URINE AUTO NEGATIVE (NEGATIVE); LEUKOCYTE ESTERASE, URINE AUTO NEGATIVE (NEGATIVE); NITRITE, URINE AUTO NEGATIVE (NEGATIVE); PROTEIN, URINE AUTO NEGATIVE (NEGATIVE); RBC, URINE AUTO 0 /HPF (0-3); SPECIFIC GRAVITY URINE AUTO 1.019 (1.002-1.035); SQUAMOUS EPITHELIAL CELL UR AU 0 /HPF (0-6); UROBILINOGEN, URINE AUTO 0.2 mg/dL (0.0-2.0); WBC, URINE AUTO 0 /HPF (0-3)
[2023-04-23 12:33] LABS: HEMATOCRIT 29.6 % (42.0-52.0); HEMOGLOBIN 9.1 g/dl (13.5-17.5); MEAN CORPUSCULAR HEMOGLOBIN 26.2 pg (27.0-33.0); MEAN CORPUSCULAR HGB CONC 30.7 g/dl (32.0-36.5); MEAN CORPUSCULAR VOLUME 85.3 fl (80.0-96.0); PLATELET COUNT, AUTOMATED 232 10^3/uL (150-450); RED BLOOD COUNT 3.47 10^6/uL (4.30-6.10); WHITE BLOOD COUNT 4.7 10^3/uL (4.0-10.0)
[2023-04-23 12:38] LABS: HEMOGLOBIN A1c 9.2 % (4.0-6.0)
[2023-04-23 12:59] LABS: CREATININE, URINE 112.2 MG/DL; MAU/CREAT RATIO 57.9 MCG/MG (0.0-30.0)
[2023-04-23 13:03] LABS: ALBUMIN 3.3 G/DL (3.2-5.2); ALKALINE PHOSPHATASE 360 U/L (46-116); ALT/SGPT 31 U/L (7.0-40); AST/SGOT 18 U/L (<34); BILIRUBIN,TOTAL 0.3 MG/DL (0.3-1.2); BLOOD UREA NITROGEN 29 MG/DL (9-23); CALCIUM LEVEL 9.2 MG/DL (8.3-10.6); CARBON DIOXIDE LEVEL 27 MMOL/L (20-31); CHLORIDE LEVEL 107 MMOL/L (98-107); CHOLESTEROL LEVEL 118 MG/DL (<200); CHOLESTEROL RISK RATIO 2.07 (<5); CREATININE FOR GFR 1.21 MG/DL (0.70-1.30); GLOMERULAR FILTRATION RATE > 60.0 (>42); GLUCOSE, FASTING 111 MG/DL (74-106); HDL CHOLESTEROL 56.8 MG/DL (>40); IRON (FE) 30 UG/DL (65-175); LDL CHOLESTEROL 49.6 MG/DL (<100); NON-HDL-C 61.2 MG/DL; PERCENT SATURATION 8.6 % (19.7-50.0); POTASSIUM SERUM 4.3 MMOL/L (3.5-5.1); SODIUM LEVEL 141 MMOL/L (136-145); TOTAL IRON BINDING CAPACITY 348 UG/DL (250-425); TOTAL PROTEIN 6.2 G/DL (5.7-8.2); TRIGLYCERIDES LEVEL 58 MG/DL (<150)
[2023-04-23 13:04] LABS: THYROID STIMULATING HORMONE 1.493 uIU/ML (0.55-4.78); VITAMIN B12 LEVEL 253 PG/ML (211-911)
== END ==
LOC: M LABDRAWC 11:37
PROVIDERS: ATTEND General Practice
DX: E11.9 Type 2 diabetes mellitus without complications (principal); D64.9 Anemia, unspecified; F32.9 Major depressive disorder, single episode, unspecified; E78.00 Pure hypercholesterolemia, unspecified; Z79.899 Other long term (current) drug therapy

== ENCOUNTER → 2024-03-14 | Outpatient (REF) | payer MEDICARE, OTHER ==
[~2024-03-14] MED LIST changes: +PANT40TA29 PO
[2024-03-14 12:10] LABS: APPEARANCE, URINE CLEAR (CLEAR); BACTERIA, URINE AUTO NEGATIVE (NEGATIVE); BILIRUBIN, URINE AUTO NEGATIVE (NEGATIVE); BLOOD, URINE BLOOD NEGATIVE (NEGATIVE); COLOR, URINE YELLOW (YELLOW); GLUCOSE, URINE (UA) AUTO 2+ mg/dL (NEGATIVE); KETONE, URINE AUTO NEGATIVE (NEGATIVE); LEUKOCYTE ESTERASE, URINE AUTO NEGATIVE (NEGATIVE); MUCUS, URINE SMALL (NEGATIVE); NITRITE, URINE AUTO NEGATIVE (NEGATIVE); PROTEIN, URINE AUTO 1+ mg/dL (NEGATIVE); RBC, URINE AUTO 0 /HPF (0-3); SPECIFIC GRAVITY URINE AUTO 1.018 (1.002-1.035); SQUAMOUS EPITHELIAL CELL UR AU 0 /HPF (0-6); UROBILINOGEN, URINE AUTO 0.2 mg/dL (0.0-2.0); WBC, URINE AUTO 0 /HPF (0-3)
[2024-03-14 12:13] LABS: HEMATOCRIT 33.6 % (42.0-52.0); HEMOGLOBIN 10.9 g/dl (13.5-17.5); MEAN CORPUSCULAR HEMOGLOBIN 29.5 pg (27.0-33.0); MEAN CORPUSCULAR HGB CONC 32.4 g/dl (32.0-36.5); MEAN CORPUSCULAR VOLUME 90.8 fl (80.0-96.0); PLATELET COUNT, AUTOMATED 273 10^3/uL (150-450); WHITE BLOOD COUNT 6.5 10^3/uL (4.0-10.0)
[2024-03-14 12:26] LABS: HEMOGLOBIN A1c 8.9 % (4.0-6.0)
[2024-03-14 12:49] LABS: MAU/CREAT RATIO 67.8 MCG/MG (0.0-30.0)
[2024-03-14 12:49] LABS: FREE T4 1.17 NG/DL (0.89-1.76); THYROID STIMULATING HORMONE 1.894 uIU/ML (0.55-4.78)
[2024-03-14 12:50] LABS: ALKALINE PHOSPHATASE 261 U/L (46-116); ALT/SGPT 29 U/L (7.0-40); AST/SGOT 12 U/L (<34); BILIRUBIN,TOTAL 0.3 MG/DL (0.3-1.2); BLOOD UREA NITROGEN 25 MG/DL (9-23); CALCIUM LEVEL 8.5 MG/DL (8.3-10.6); CARBON DIOXIDE LEVEL 27 MMOL/L (20-31); CHLORIDE LEVEL 110 MMOL/L (98-107); CHOLESTEROL LEVEL 110 MG/DL (<200); CHOLESTEROL RISK RATIO 2.04 (<5); CREATININE FOR GFR 1.13 MG/DL (0.70-1.30); GLOMERULAR FILTRATION RATE > 60.0 (>35); GLUCOSE, FASTING 85 MG/DL (74-106); HDL CHOLESTEROL 53.8 MG/DL (>40); LDL CHOLESTEROL 44.2 MG/DL (<100); NON-HDL-C 56.2 MG/DL; POTASSIUM SERUM 4.7 MMOL/L (3.5-5.1); SODIUM LEVEL 143 MMOL/L (136-145); TRIGLYCERIDES LEVEL 60 MG/DL (<150); VITAMIN B12 LEVEL 366 PG/ML (211-911)
== END ==
LOC: M LABDRAWC 10:57
PROVIDERS: ATTEND General Practice
DX: E11.9 Type 2 diabetes mellitus without complications (principal); D64.9 Anemia, unspecified; F32.9 Major depressive disorder, single episode, unspecified; E78.00 Pure hypercholesterolemia, unspecified

== ENCOUNTER → 2024-06-13 | Outpatient (REF) | payer MEDICARE, OTHER ==
[2024-06-13 15:11] LABS: HEMATOCRIT 33.3 % (42.0-52.0); HEMOGLOBIN 10.5 g/dl (13.5-17.5); MEAN CORPUSCULAR HEMOGLOBIN 28.8 pg (27.0-33.0); MEAN CORPUSCULAR HGB CONC 31.5 g/dl (32.0-36.5); MEAN CORPUSCULAR VOLUME 91.5 fl (80.0-96.0); PLATELET COUNT, AUTOMATED 251 10^3/uL (150-450); RED BLOOD COUNT 3.64 10^6/uL (4.30-6.10); WHITE BLOOD COUNT 5.9 10^3/uL (4.0-10.0)
[2024-06-13 15:46] LABS: CREATININE, URINE 47.2 MG/DL; MAU/CREAT RATIO 95.3 MCG/MG (0.0-30.0)
[2024-06-13 15:47] LABS: HEMOGLOBIN A1c 9.2 % (4.0-6.0)
[2024-06-13 15:48] LABS: THYROID STIMULATING HORMONE 1.832 uIU/ML (0.55-4.78)
[2024-06-13 15:50] LABS: ALBUMIN 3.4 G/DL (3.2-5.2); ALKALINE PHOSPHATASE 257 U/L (46-116); ALT/SGPT 24 U/L (7.0-40); AST/SGOT 12 U/L (<34); BILIRUBIN,TOTAL 0.4 MG/DL (0.3-1.2); BLOOD UREA NITROGEN 23 MG/DL (9-23); CALCIUM LEVEL 8.5 MG/DL (8.3-10.6); CARBON DIOXIDE LEVEL 27 MMOL/L (20-31); CHLORIDE LEVEL 111 MMOL/L (98-107); CHOLESTEROL LEVEL 119 MG/DL (<200); CHOLESTEROL RISK RATIO 2.38 (<5); CREATININE FOR GFR 1.08 MG/DL (0.70-1.30); GLOMERULAR FILTRATION RATE > 60.0 (>35); GLUCOSE, FASTING 71 MG/DL (74-106); HDL CHOLESTEROL 49.8 MG/DL (>40); NON-HDL-C 69.2 MG/DL; POTASSIUM SERUM 4.8 MMOL/L (3.5-5.1); SODIUM LEVEL 143 MMOL/L (136-145); TOTAL PROTEIN 6.4 G/DL (5.7-8.2); TRIGLYCERIDES LEVEL 66 MG/DL (<150)
[2024-06-13 15:52] LABS: FREE T4 1.24 NG/DL (0.89-1.76); VITAMIN B12 LEVEL 425 PG/ML (211-911)
[2024-06-13 23:19] LABS: APPEARANCE, URINE CLEAR (CLEAR); BACTERIA, URINE AUTO NEGATIVE (NEGATIVE); BILIRUBIN, URINE AUTO NEGATIVE (NEGATIVE); BLOOD, URINE BLOOD NEGATIVE (NEGATIVE); COLOR, URINE STRAW (YELLOW); GLUCOSE, URINE (UA) AUTO 1+ mg/dL (NEGATIVE); KETONE, URINE AUTO NEGATIVE (NEGATIVE); LEUKOCYTE ESTERASE, URINE AUTO NEGATIVE (NEGATIVE); MUCUS, URINE SMALL (NEGATIVE); NITRITE, URINE AUTO NEGATIVE (NEGATIVE); PROTEIN, URINE AUTO NEGATIVE (NEGATIVE); RBC, URINE AUTO 0 /HPF (0-3); SPECIFIC GRAVITY URINE AUTO 1.013 (1.002-1.035); SQUAMOUS EPITHELIAL CELL UR AU 0 /HPF (0-6); UROBILINOGEN, URINE AUTO 0.2 mg/dL (0.0-2.0); WBC, URINE AUTO 0 /HPF (0-3)
== END ==
LOC: M LABDRAWC 13:16
PROVIDERS: ATTEND General Practice
DX: E11.9 Type 2 diabetes mellitus without complications (principal); D64.9 Anemia, unspecified; E78.00 Pure hypercholesterolemia, unspecified; F32.9 Major depressive disorder, single episode, unspecified

== ENCOUNTER → 2024-08-04 | Outpatient (REF) | payer MEDICARE, OTHER ==
[2024-08-04 12:45] LABS: APPEARANCE, URINE CLEAR (CLEAR); BACTERIA, URINE AUTO NEGATIVE (NEGATIVE); BILIRUBIN, URINE AUTO NEGATIVE (NEGATIVE); BLOOD, URINE BLOOD NEGATIVE (NEGATIVE); COLOR, URINE YELLOW (YELLOW); GLUCOSE, URINE (UA) AUTO NEGATIVE (NEGATIVE); KETONE, URINE AUTO NEGATIVE (NEGATIVE); LEUKOCYTE ESTERASE, URINE AUTO NEGATIVE (NEGATIVE); MUCUS, URINE SMALL (NEGATIVE); NITRITE, URINE AUTO NEGATIVE (NEGATIVE); PROTEIN, URINE AUTO NEGATIVE (NEGATIVE); RBC, URINE AUTO 0 /HPF (0-3); SPECIFIC GRAVITY URINE AUTO 1.011 (1.002-1.035); SQUAMOUS EPITHELIAL CELL UR AU 0 /HPF (0-6); UROBILINOGEN, URINE AUTO 0.2 mg/dL (0.0-2.0); WBC, URINE AUTO 0 /HPF (0-3)
[2024-08-04 12:53] LABS: ALBUMIN 3.4 G/DL (3.2-5.2); ALKALINE PHOSPHATASE 251 U/L (46-116); ALT/SGPT 16 U/L (7.0-40); AST/SGOT 8 U/L (<34); BILIRUBIN,TOTAL 0.4 MG/DL (0.3-1.2); BLOOD UREA NITROGEN 24 MG/DL (9-23); CALCIUM LEVEL 9.2 MG/DL (8.3-10.6); CARBON DIOXIDE LEVEL 27 MMOL/L (20-31); CHLORIDE LEVEL 111 MMOL/L (98-107); CHOLESTEROL LEVEL 112 MG/DL (<200); CHOLESTEROL RISK RATIO 2.21 (<5); CREATININE FOR GFR 1.17 MG/DL (0.70-1.30); GLOMERULAR FILTRATION RATE > 60.0 (>35); GLUCOSE, FASTING 124 MG/DL (74-106); HDL CHOLESTEROL 50.6 MG/DL (>40); HEMOGLOBIN 10.5 g/dl (13.5-17.5); LDL CHOLESTEROL 44.4 MG/DL (<100); MEAN CORPUSCULAR HEMOGLOBIN 29.2 pg (27.0-33.0); MEAN CORPUSCULAR HGB CONC 32.8 g/dl (32.0-36.5); MEAN CORPUSCULAR VOLUME 88.9 fl (80.0-96.0); NON-HDL-C 61.4 MG/DL; PLATELET COUNT, AUTOMATED 223 10^3/uL (150-450); POTASSIUM SERUM 4.3 MMOL/L (3.5-5.1); SODIUM LEVEL 139 MMOL/L (136-145); TOTAL PROTEIN 6.3 G/DL (5.7-8.2); TRIGLYCERIDES LEVEL 85 MG/DL (<150); WHITE BLOOD COUNT 4.4 10^3/uL (4.0-10.0)
[2024-08-04 12:55] LABS: FREE T4 1.27 NG/DL (0.89-1.76); THYROID STIMULATING HORMONE 1.847 uIU/ML (0.55-4.78)
[2024-08-04 12:56] LABS: VITAMIN B12 LEVEL 431 PG/ML (211-911)
[2024-08-04 13:07] LABS: MAU/CREAT RATIO 24.5 MCG/MG (0.0-30.0)
[2024-08-04 13:14] LABS: HEMOGLOBIN A1c 9.4 % (4.0-6.0)
== END ==
LOC: M LABDRAWC 11:33 → M LAB REF 11:33
PROVIDERS: ATTEND General Practice
DX: E11.9 Type 2 diabetes mellitus without complications (principal); D64.9 Anemia, unspecified; E78.00 Pure hypercholesterolemia, unspecified; F32.9 Major depressive disorder, single episode, unspecified; Z79.899 Other long term (current) drug therapy

== ENCOUNTER 2024-08-15 17:50 | Inpatient (IN) | payer MEDICARE, OTHER ==
[~2024-08-15] VITALS: Ht 175.3 cm; Wt 78.6 kg
[2024-08-15] MEDS ORDERED: ISOVUE-370 76% 100ML VIAL As Ordered ONE (18:08)
[2024-08-15 18:33] LABS: BASO % 0.7 % (0.0-1.0); EOS # 0.2 10^3/uL (0.0-0.5); EOS % 3.1 % (0.0-3.0); HEMATOCRIT 34.7 % (42.0-52.0); HEMOGLOBIN 11.3 g/dl (13.5-17.5); LYMPH % 16.7 % (24.0-44.0); MEAN CORPUSCULAR HEMOGLOBIN 28.5 pg (27.0-33.0); MEAN CORPUSCULAR HGB CONC 32.6 g/dl (32.0-36.5); MEAN CORPUSCULAR VOLUME 87.4 fl (80.0-96.0); MONO # 0.7 10^3/uL (0.0-0.8); MONO % 11.3 % (2.0-8.0); NEUTROPHILS # 4.2 10^3/uL (1.5-8.5); PLATELET COUNT, AUTOMATED 245 10^3/uL (150-450); RED BLOOD COUNT 3.97 10^6/uL (4.30-6.10); WHITE BLOOD COUNT 6.1 10^3/uL (4.0-10.0)
[2024-08-15 18:47] LABS: INR 0.99; PARTIAL THROMBOPLASTIN TIME 28.8 SECONDS (24.8-34.2); PROTHROMBIN TIME 12.8 SECONDS (12.5-14.5)
[2024-08-15 19:08] LABS: CK-MB VALUE MASS < 1.0 NG/ML (<3.6)
[2024-08-15 19:10] LABS: CPK CREATINE PHOSPHOKINASE 61 U/L (46-171); MB/CK RELATIVE INDEX 1.63 (< OR =4)
[2024-08-15] MEDS: ASPIRIN 325 MG TAB PO ONE (20:27)
[2024-08-15] MEDS: CLOPIDOGREL 75 MG TAB PO ONE (20:27)
[2024-08-15] MEDS ORDERED: INSU100I16 SQ (21:02)
[2024-08-15] MEDS ORDERED: AMLO2.5T3 PO (21:02)
[2024-08-15] MEDS ORDERED: CARV12.5 PO (21:02)
[2024-08-15] MEDS ORDERED: ATOR40TA75 PO (21:02)
[2024-08-15] MEDS ORDERED: HOME MED LIST COMPLETE! XX SCH (21:05)
[2024-08-15 21:19] LABS: ALBUMIN 3.1 G/DL (3.2-5.2); ALKALINE PHOSPHATASE 238 U/L (46-116); ALT/SGPT 18 U/L (7.0-40); AST/SGOT 10 U/L (<34); BILIRUBIN,TOTAL 0.3 MG/DL (0.3-1.2); BLOOD UREA NITROGEN 29 MG/DL (9-23); CALCIUM LEVEL 8.8 MG/DL (8.3-10.6); CARBON DIOXIDE LEVEL 27 MMOL/L (20-31); CHLORIDE LEVEL 108 MMOL/L (98-107); CREATININE FOR GFR 1.22 MG/DL (0.70-1.30); GLOMERULAR FILTRATION RATE > 60.0 (>35); GLUCOSE, FASTING 215 MG/DL (74-106); MAGNESIUM LEVEL 1.6 MG/DL (1.8-2.4); POTASSIUM SERUM 5.1 MMOL/L (3.5-5.1); SODIUM LEVEL 140 MMOL/L (136-145)
[2024-08-15] MEDS ORDERED: OMEP-173 PO (21:19)
[2024-08-15] MEDS ORDERED: DEXTROSE 50% 50ML SYRINGE IV PRN (21:50)
[2024-08-15] MEDS ORDERED: MAALOX 30 ML SUSP *UDC PO PRN (21:50)
[2024-08-15] MEDS ORDERED: GLUCOSE 4 GM CHEW PO PRN (21:50)
[2024-08-15] MEDS ORDERED: MOM 30ML SUSPENSION UDC PO PRN (21:50)
[2024-08-15] MEDS ORDERED: GLUCAGON INJ 1MG VIAL SC PRN (21:50)
[2024-08-15 23:08] VITALS: BP 139/68; O2SAT 99
[2024-08-15 23:15] VITALS: TEMP 97.4
[2024-08-15] MEDS: INSULIN LISPRO (NovoLOG) PER UNIT SC SCH (23:42)
[2024-08-15 23:45] LABS: INR 1.06; PARTIAL THROMBOPLASTIN TIME 28.6 SECONDS (24.8-34.2); PROTHROMBIN TIME 13.5 SECONDS (12.5-14.5)
[2024-08-15] MEDS: MAGNESIUM OXIDE 400MG TAB (MAG-OX) PO SCH (23:47)
[2024-08-15 23:48] LABS: HEMOGLOBIN A1c 9.4 % (4.0-6.0)
[2024-08-16 00:14] LABS: ALBUMIN 3.5 G/DL (3.2-5.2); ALKALINE PHOSPHATASE 256 U/L (46-116); ALT/SGPT 17 U/L (7.0-40); AST/SGOT 10 U/L (<34); BILIRUBIN,DIRECT 0.1 MG/DL (<0.4); BILIRUBIN,TOTAL 0.4 MG/DL (0.3-1.2); CHOLESTEROL LEVEL 121 MG/DL (<200); CHOLESTEROL RISK RATIO 2.33 (<5); CK-MB VALUE MASS < 1.0 NG/ML (<3.6); CPK CREATINE PHOSPHOKINASE 70 U/L (46-171); HDL CHOLESTEROL 51.9 MG/DL (>40); LDL CHOLESTEROL 51.3 MG/DL (<100); MB/CK RELATIVE INDEX 1.42 (< OR =4); NON-HDL-C 69.1 MG/DL; TOTAL PROTEIN 6.6 G/DL (5.7-8.2); TRIGLYCERIDES LEVEL 89 MG/DL (<150)
[2024-08-16 04:51] VITALS: BP 131/64; TEMP 98.2; O2SAT 94
[2024-08-16 05:46] LABS: HEMATOCRIT 30.9 % (42.0-52.0); HEMOGLOBIN 10.1 g/dl (13.5-17.5); MEAN CORPUSCULAR HEMOGLOBIN 28.5 pg (27.0-33.0); MEAN CORPUSCULAR HGB CONC 32.7 g/dl (32.0-36.5); MEAN CORPUSCULAR VOLUME 87.3 fl (80.0-96.0); PLATELET COUNT, AUTOMATED 195 10^3/uL (150-450); RED BLOOD COUNT 3.54 10^6/uL (4.30-6.10); WHITE BLOOD COUNT 4.5 10^3/uL (4.0-10.0)
[2024-08-16 06:19] LABS: ALBUMIN 3.1 G/DL (3.2-5.2); ALKALINE PHOSPHATASE 222 U/L (46-116); ALT/SGPT 17 U/L (7.0-40); AST/SGOT 9 U/L (<34); BILIRUBIN,TOTAL 0.4 MG/DL (0.3-1.2); BLOOD UREA NITROGEN 23 MG/DL (9-23); CALCIUM LEVEL 8.8 MG/DL (8.3-10.6); CARBON DIOXIDE LEVEL 26 MMOL/L (20-31); CHLORIDE LEVEL 110 MMOL/L (98-107); CREATININE FOR GFR 1.11 MG/DL (0.70-1.30); GLOMERULAR FILTRATION RATE > 60.0 (>35); GLUCOSE, FASTING 155 MG/DL (74-106); MAGNESIUM LEVEL 1.7 MG/DL (1.8-2.4); POTASSIUM SERUM 4.1 MMOL/L (3.5-5.1); SODIUM LEVEL 142 MMOL/L (136-145); TOTAL PROTEIN 5.9 G/DL (5.7-8.2)
[2024-08-16 07:27] VITALS: BP_SYST 129; BP_SYST 155; BP_DIAS 61; BP_DIAS 70; TEMP 96.7; TEMP 98.2; O2SAT 95
[2024-08-16] MEDS: INSULIN LISPRO (NovoLOG) PER UNIT SC SCH (07:30)
[2024-08-16] MEDS: DOCUSATE SODIUM 100MG CAPSULE PO SCH (09:00)
[2024-08-16] MEDS ORDERED: HEPARIN SOD (PORCINE) 5000UNITS/ML 1ML VIAL/SYRINGE SC SCH (09:00)
[2024-08-16] MEDS: MAG SULF 1GM/100ML (MAG RUN) 1 GM in IV 1 EA IV SCH (09:06)
[2024-08-16] MEDS: ATORVASTATIN 20 MG TAB PO SCH (09:07)
[2024-08-16] MEDS: ASPIRIN 81MG CHEW TABLET PO SCH (09:11)
[2024-08-16] MEDS: ACETAMINOPHEN 325 MG TAB PO PRN (09:12)
[2024-08-16] MEDS: CLOPIDOGREL 75 MG TAB PO SCH (09:12)
[2024-08-16 12:00] VITALS: BP 168/70; TEMP 97.8; O2SAT 98
[2024-08-16] MEDS: OMEPRAZOLE 20MG CAP PO SCH (13:00)
[2024-08-16] MEDS: LOSARTAN 50MG TABLET PO SCH (13:01)
[2024-08-16] MEDS: amLODIPine 5 MG TAB PO SCH (13:01)
[2024-08-16] MEDS: CARVedilol 6.25 MG TAB PO SCH (13:01)
[2024-08-16] MEDS: TAMSULOSIN 0.4 MG CAP PO SCH (13:01)
[2024-08-16] MEDS ORDERED: PROHANCE 279.3MG/ML 15ML VIAL As Ordered ONE (13:51)
[2024-08-16 15:12] VITALS: BP 182/78; TEMP 98.1; O2SAT 99
[2024-08-16] MEDS: LORazepam 0.5 MG TAB PO ONE (15:35)
[2024-08-16 16:27] VITALS: BP 182/78
[2024-08-16] MEDS: amLODIPine 5 MG TAB PO ONE (16:27)
[2024-08-16 17:12] VITALS: BP 158/68
[2024-08-16] MEDS ORDERED: ASPI81CH8 PO (17:18)
[2024-08-16] MEDS ORDERED: FINASTERIDE 5MG TAB PO SCH (21:00)
[2024-08-16] MEDS ORDERED: LEVEMIR (INSULIN DETEMIR) 1 UNITS/0.01ML SC SCH (21:00)
[2024-08-17] MEDS ORDERED: amLODIPine 5 MG TAB PO SCH (09:00)
== END 2024-08-16 18:13 | disposition home or self-care (01) | DRG 71 ==
LOC: M ED 17:50 → M ED INP 21:49 → M PCU 23:11
PROVIDERS: ADMIT Internal Medicine; ATTEND Internal Medicine
PROC: B246ZZZ Ultrasonography of Right and Left Heart (ICD-10-PCS; principal; 2024-08-16)
DX: I67.83 Posterior reversible encephalopathy syndrome (principal); I50.32 Chronic diastolic (congestive) heart failure; I16.9 Hypertensive crisis, unspecified; E11.9 Type 2 diabetes mellitus without complications; I25.2 Old myocardial infarction; I25.10 Atherosclerotic heart disease of native coronary artery without angina pectoris; E78.5 Hyperlipidemia, unspecified; K21.9 Gastro-esophageal reflux disease without esophagitis; I11.0 Hypertensive heart disease with heart failure; Z87.891 Personal history of nicotine dependence; Z79.4 Long term (current) use of insulin; Z79.84 Long term (current) use of oral hypoglycemic drugs; Z79.899 Other long term (current) drug therapy; Z88.0 Allergy status to penicillin; Z88.2 Allergy status to sulfonamides

== ENCOUNTER → 2024-10-16 | Outpatient (REF) | payer MEDICARE, OTHER ==
[~2024-10-16] MED LIST changes: +AMLO2.5T3 PO; +ASPI81CH8 PO; +CARV12.5 PO; +INSU100I16 SQ; +OMEP-173 PO
[2024-10-16 12:09] LABS: HEMATOCRIT 29.6 % (42.0-52.0); HEMOGLOBIN 9.3 g/dl (13.5-17.5); MEAN CORPUSCULAR HEMOGLOBIN 28.5 pg (27.0-33.0); MEAN CORPUSCULAR HGB CONC 31.4 g/dl (32.0-36.5); MEAN CORPUSCULAR VOLUME 90.8 fl (80.0-96.0); PLATELET COUNT, AUTOMATED 314 10^3/uL (150-450); RED BLOOD COUNT 3.26 10^6/uL (4.30-6.10); WHITE BLOOD COUNT 6.1 10^3/uL (4.0-10.0)
[2024-10-16 12:44] LABS: FREE T4 1.18 NG/DL (0.89-1.76); VITAMIN B12 LEVEL 586 PG/ML (211-911)
[2024-10-16 12:45] LABS: ALBUMIN 3.2 G/DL (3.2-5.2); ALKALINE PHOSPHATASE 298 U/L (40-129); ALT/SGPT 21 U/L (7.0-40); AST/SGOT 11 U/L (<34); BILIRUBIN,TOTAL 0.3 MG/DL (0.3-1.2); BLOOD UREA NITROGEN 27 MG/DL (9-23); CALCIUM LEVEL 9.2 MG/DL (8.3-10.6); CARBON DIOXIDE LEVEL 27 MMOL/L (20-31); CHLORIDE LEVEL 109 MMOL/L (98-107); CHOLESTEROL LEVEL 116 MG/DL (<200); CHOLESTEROL RISK RATIO 2.13 (<5); CREATININE FOR GFR 1.18 MG/DL (0.70-1.30); GLOMERULAR FILTRATION RATE > 60.0 (>35); GLUCOSE, FASTING 77 MG/DL (74-106); HDL CHOLESTEROL 54.3 MG/DL (>40); LDL CHOLESTEROL 46.3 MG/DL (<100); NON-HDL-C 61.7 MG/DL; POTASSIUM SERUM 4.9 MMOL/L (3.5-5.1); SODIUM LEVEL 144 MMOL/L (136-145); TOTAL PROTEIN 6.3 G/DL (5.7-8.2); TRIGLYCERIDES LEVEL 77 MG/DL (<150)
[2024-10-16 18:52] LABS: APPEARANCE, URINE CLEAR (CLEAR); BACTERIA, URINE AUTO NEGATIVE (NEGATIVE); BILIRUBIN, URINE AUTO NEGATIVE (NEGATIVE); BLOOD, URINE BLOOD NEGATIVE (NEGATIVE); COLOR, URINE STRAW (YELLOW); GLUCOSE, URINE (UA) AUTO NEGATIVE (NEGATIVE); KETONE, URINE AUTO NEGATIVE (NEGATIVE); LEUKOCYTE ESTERASE, URINE AUTO NEGATIVE (NEGATIVE); NITRITE, URINE AUTO NEGATIVE (NEGATIVE); PROTEIN, URINE AUTO NEGATIVE (NEGATIVE); RBC, URINE AUTO 0 /HPF (0-3); SPECIFIC GRAVITY URINE AUTO 1.011 (1.002-1.035); SQUAMOUS EPITHELIAL CELL UR AU 0 /HPF (0-6); UROBILINOGEN, URINE AUTO 0.2 mg/dL (0.0-2.0); WBC, URINE AUTO 0 /HPF (0-3)
[2024-10-16 19:19] LABS: CREATININE, URINE 41.2 MG/DL
[2024-10-16 19:21] LABS: MAU/CREAT RATIO 46.1 MCG/MG (0.0-30.0)
== END ==
LOC: M LABDRAWC 11:17
PROVIDERS: ATTEND General Practice
DX: E11.9 Type 2 diabetes mellitus without complications (principal); D64.9 Anemia, unspecified; F32.9 Major depressive disorder, single episode, unspecified; E78.00 Pure hypercholesterolemia, unspecified

== ENCOUNTER → 2025-02-01 | Outpatient (CLI) | payer MEDICARE, OTHER ==
[~2025-02-01] MED LIST changes: +ASCO250T20 PO; +CENT1TAB PO; +LANTINJ4
== END ==
LOC: M RAD 10:44
PROVIDERS: ATTEND Specialist
DX: N32.9 Bladder disorder, unspecified (principal)

== ENCOUNTER → 2025-02-02 | Outpatient (REF) | payer MEDICARE, OTHER ==
[2025-02-02 14:09] LABS: BASO % 0.5 % (0.0-1.0); EOS # 0.3 10^3/uL (0.0-0.5); EOS % 5.1 % (0.0-3.0); HEMOGLOBIN 9.2 g/dl (13.5-17.5); LYMPH # 1.3 10^3/uL (1.5-5.0); LYMPH % 23.1 % (24.0-44.0); MEAN CORPUSCULAR HGB CONC 31.7 g/dl (32.0-36.5); MEAN CORPUSCULAR VOLUME 81.9 fl (80.0-96.0); MONO # 0.6 10^3/uL (0.0-0.8); MONO % 10.1 % (2.0-8.0); NEUTROPHILS # 3.4 10^3/uL (1.5-8.5); NEUTROPHILS % 60.8 % (36.0-66.0); PLATELET COUNT, AUTOMATED 279 10^3/uL (150-450); RED BLOOD COUNT 3.54 10^6/uL (4.30-6.10); WHITE BLOOD COUNT 5.5 10^3/uL (4.0-10.0)
[2025-02-02 14:40] LABS: URIC ACID 5.4 MG/DL (3.7-9.2)
[2025-02-02 14:43] LABS: ALBUMIN 3.1 G/DL (3.2-5.2); ALKALINE PHOSPHATASE 377 U/L (40-129); ALT/SGPT 17 U/L (7.0-40); AST/SGOT 16 U/L (<34); BILIRUBIN,TOTAL 0.3 MG/DL (0.3-1.2); BLOOD UREA NITROGEN 22 MG/DL (9-23); CALCIUM LEVEL 8.7 MG/DL (8.3-10.6); CARBON DIOXIDE LEVEL 26 MMOL/L (20-31); CHLORIDE LEVEL 106 MMOL/L (98-107); CREATININE FOR GFR 1.17 MG/DL (0.70-1.30); FERRITIN 9.5 NG/ML (10.5-307.3); GLOMERULAR FILTRATION RATE > 60.0 (>35); GLUCOSE, FASTING 131 MG/DL (74-106); IRON (FE) 31 UG/DL (65-175); PERCENT SATURATION 9.2 % (19.7-50.0); POTASSIUM SERUM 4.6 MMOL/L (3.5-5.1); SODIUM LEVEL 142 MMOL/L (136-145); TOTAL IRON BINDING CAPACITY 337 UG/DL (250-425); TOTAL PROTEIN 6.5 G/DL (5.7-8.2)
[2025-02-03 06:27] LABS: T P ELECTROPHORESIS SO 6.6 g/dL (6.1-8.1)
[2025-02-03 14:03] LABS: PROTEIN CREATININE RATIO 184 mg/g creat (25-148); T PROTEIN CREATININE RATIO 0.184 (0.025-0.148); UPEP CREATININE 76 mg/dL (20-320); UPEP TOTAL PROTEIN 14 mg/dL (5-25)
== END ==
LOC: M LABDRAWC 13:21
PROVIDERS: ATTEND Internal Medicine Hematology & Oncology
DX: E61.1 Iron deficiency (principal); D47.2 Monoclonal gammopathy; Z79.899 Other long term (current) drug therapy; R97.0 Elevated carcinoembryonic antigen [CEA]

== ENCOUNTER → 2025-05-15 | Outpatient (CLI) | payer MEDICARE, OTHER ==
[~2025-05-15] MED LIST changes: +ALPR0.25 PO; -FLOM0.4C39 PO; +GUAISYP4 PO; +INSUH10VL SC; -LANTINJ4; +LANTINJ4 SQ; +MAGN400T35 PO; +TAMS-18 PO
== END ==
LOC: M RAD 12:15
PROVIDERS: ATTEND Internal Medicine Hematology & Oncology
DX: C34.90 Malignant neoplasm of unspecified part of unspecified bronchus or lung (principal)

== ENCOUNTER → 2025-05-28 | Outpatient (CLI) | payer MEDICARE, OTHER ==
[~2025-05-28] MED LIST changes: +PROHANCE 279.3MG/ML 15ML VIAL ONE
== END ==
LOC: M PLAIMG 09:37
PROVIDERS: ATTEND Specialist
DX: C78.00 Secondary malignant neoplasm of unspecified lung (principal); G31.9 Degenerative disease of nervous system, unspecified; I63.9 Cerebral infarction, unspecified; J01.00 Acute maxillary sinusitis, unspecified; J01.20 Acute ethmoidal sinusitis, unspecified
CPT/HCPCS: 70553; A9576

== ENCOUNTER 2025-06-19 10:47 | Emergency (ER) | payer MEDICARE, OTHER ==
[~2025-06-19] VITALS: Ht 175.3 cm; Wt 70.0 kg
[~2025-06-19 10:47] MED LIST changes: +ALEC150C PO; +DEXA4TA PO; +FOLI1TAB11 PO; -PROHANCE 279.3MG/ML 15ML VIAL ONE
[2025-06-19 11:24] LABS: BASO # 0.0 10^3/uL (0.0-0.2); BASO % 0.3 % (0.0-1.0); EOS # 0.0 10^3/uL (0.0-0.5); EOS % 0.3 % (0.0-3.0); LYMPH # 0.8 10^3/uL (1.5-5.0); LYMPH % 5.3 % (24.0-44.0); MONO # 1.2 10^3/uL (0.0-0.8); MONO % 8.4 % (2.0-8.0); NEUTROPHILS # 12.5 10^3/uL (1.5-8.5); NEUTROPHILS % 85.0 % (36.0-66.0); PLATELET COUNT, AUTOMATED 432 10^3/uL (150-450)
[2025-06-19 11:37] LABS: INR 1.15
[2025-06-19 11:56] LABS: ALT/SGPT 29.0 U/L (7.0-40); AST/SGOT 40.0 U/L (<34); CALCIUM LEVEL 9.1 MG/DL (8.3-10.6); CARBON DIOXIDE LEVEL 26.0 MMOL/L (20-31); CHLORIDE LEVEL 102.0 MMOL/L (98-107); CREATININE FOR GFR 1.0 MG/DL (0.70-1.30); GLOMERULAR FILTRATION RATE 75.6 (>35); MAGNESIUM LEVEL 2.2 MG/DL (1.8-2.4); POTASSIUM SERUM 5.0 MMOL/L (3.5-5.1); SODIUM LEVEL 140.0 MMOL/L (136-145)
[2025-06-19] MEDS: MORPHINE 2 MG/ML 1 ML VIAL IV PRN (11:57)
[2025-06-19] MEDS: ONDANSETRON 4MG 2ML VIAL IV ONE (11:57)
[2025-06-19] MEDS: NS (Normal Saline) 0.9% 1,000 ML IV ONE ×2 (11:58→14:20)
[2025-06-19] MEDS ORDERED: ISOVUE-370 76% 100 ML VIAL As Ordered ONE (12:00)
[2025-06-19 13:31] LABS: KETONE, URINE AUTO RFX NEGATIVE (NEGATIVE); LEUKOCYTE ESTERASE UR AUTO RFX NEGATIVE (NEGATIVE); NITRITE, URINE AUTO RFX NEGATIVE (NEGATIVE); RBC, URINE AUTO RFX 0 /HPF (0-3); SQUAM EPITHELIAL CELL UR AURFX 0 /HPF (0-6); WBC, URINE AUTO RFX 0 /HPF (0-3)
[2025-06-19 14:36] LABS: PLATELET COUNT, AUTOMATED 353 10^3/uL (150-450)
[2025-06-19 16:15] VITALS: BP 186/76; TEMP 97.1; O2SAT 97
[2025-06-21] MEDS ORDERED: ONDA-84 PO (08:30)
== END 2025-06-19 16:52 | disposition home or self-care (01) ==
LOC: M ED 10:47 → EDBD 10:47 → M ED 16:52
DX: E86.0 Dehydration (principal); R11.2 Nausea with vomiting, unspecified; J98.11 Atelectasis; J91.8 Pleural effusion in other conditions classified elsewhere; K57.30 Diverticulosis of large intestine without perforation or abscess without bleeding; E11.9 Type 2 diabetes mellitus without complications; F41.9 Anxiety disorder, unspecified; Z88.0 Allergy status to penicillin; Z88.2 Allergy status to sulfonamides; Z79.4 Long term (current) use of insulin; Z79.84 Long term (current) use of oral hypoglycemic drugs; Z79.899 Other long term (current) drug therapy; Z79.810 Long term (current) use of selective estrogen receptor modulators (SERMs)
CPT/HCPCS: 74174; 80047; 80048; 80076; 81001; 83690; 83735; 85025; 85027; 85610; 86850; 86900; 86901; 93005; 93041; 96361; 96374; 99285; J2405; Q9967

== ENCOUNTER 2025-06-24 19:53 | Observation (INO) | payer MEDICARE, OTHER ==
[~2025-06-24] VITALS: Ht 175.3 cm; Wt 71.4 kg
[~2025-06-24 19:53] MED LIST changes: +ONDA-84 PO
[2025-06-24 21:20] LABS: PLATELET COUNT, AUTOMATED 294 10^3/uL (150-450)
[2025-06-24 21:49] LABS: CK-MB VALUE MASS 1.2 NG/ML (<3.6)
[2025-06-24 21:50] LABS: CALCIUM LEVEL 7.5 MG/DL (8.3-10.6); CARBON DIOXIDE LEVEL 23.0 MMOL/L (20-31); CHLORIDE LEVEL 103.0 MMOL/L (98-107); CPK CREATINE PHOSPHOKINASE 22.0 U/L (46-171); CREATININE FOR GFR 1.17 MG/DL (0.70-1.30); GLOMERULAR FILTRATION RATE 62.6 (>35); MB/CK RELATIVE INDEX 5.45 (< OR =4); POTASSIUM SERUM 4.6 MMOL/L (3.5-5.1); SODIUM LEVEL 138.0 MMOL/L (136-145)
[2025-06-25] MEDS: NS (Normal Saline) 0.9% 1,000 ML IV ONE (00:16)
[2025-06-25] MEDS: PANTOPRAZOLE 40MG VIAL IV ONE (00:16)
[2025-06-25 00:25] LABS: INR 1.2
[2025-06-25 00:32] LABS: APPEARANCE, URINE CLEAR (CLEAR); BACTERIA, URINE AUTO NEGATIVE (NEGATIVE); BILIRUBIN, URINE AUTO NEGATIVE (NEGATIVE); BLOOD, URINE BLOOD NEGATIVE (NEGATIVE); GLUCOSE, URINE (UA) AUTO NEGATIVE (NEGATIVE); KETONE, URINE AUTO NEGATIVE (NEGATIVE); LEUKOCYTE ESTERASE, URINE AUTO NEGATIVE (NEGATIVE); MUCUS, URINE SMALL (NEGATIVE); NITRITE, URINE AUTO NEGATIVE (NEGATIVE); PROTEIN, URINE AUTO NEGATIVE (NEGATIVE); RBC, URINE AUTO 1 /HPF (0-3); SPECIFIC GRAVITY URINE AUTO 1.016 (1.002-1.035); SQUAMOUS EPITHELIAL CELL UR AU 0 /HPF (0-6); UROBILINOGEN, URINE AUTO 0.2 mg/dL (0.0-2.0); WBC, URINE AUTO 1 /HPF (0-3)
[2025-06-25] MEDS ORDERED: MOM 30 ML SUSPENSION UDC PO PRN (02:35)
[2025-06-25] MEDS ORDERED: GLUCAGON INJ 1 MG VIAL SC PRN (03:05)
[2025-06-25] MEDS ORDERED: GLUCOSE 4 GM CHEW PO PRN (03:05)
[2025-06-25] MEDS ORDERED: DEXTROSE 50% 50 ML SYRINGE IV PRN (03:05)
[2025-06-25 03:39] LABS: ESTIMATED AVERAGE GLUCOSE 160.0 MG/DL (60-110)
[2025-06-25] MEDS ORDERED: OMEP-173 PO (04:17)
[2025-06-25] MEDS ORDERED: ASPI81TA26 PO (04:17)
[2025-06-25] MEDS ORDERED: AMLO1TAB24 PO (04:17)
[2025-06-25] MEDS ORDERED: HOME MED LIST COMPLETE! XX SCH (04:20)
[2025-06-25] MEDS ORDERED: ONDANSETRON 4MG TAB PO PRN (04:40)
[2025-06-25] MEDS ORDERED: ALPRAZolam 0.25 MG TAB PO PRN (04:40)
[2025-06-25] MEDS: ACETAMINOPHEN 325 MG TAB PO PRN (05:02)
[2025-06-25] MEDS: SUCRALFATE 1 GM TAB PO SCH ×2 (05:03→18:11)
[2025-06-25] MEDS: LR 1,000 ML IV SCH (05:04)
[2025-06-25] MEDS ORDERED: ONDANSETRON 4MG 2ML VIAL IV PRN (08:05)
[2025-06-25 08:23] LABS: PLATELET COUNT, AUTOMATED 302 10^3/uL (150-450)
[2025-06-25] MEDS: INSULIN LISPRO (NovoLOG) PER UNIT SC SCH ×2 (08:32→20:16)
[2025-06-25] MEDS: amLODIPine 5 MG TAB PO SCH (08:32)
[2025-06-25] MEDS: FINASTERIDE 5 MG TAB PO SCH (08:32)
[2025-06-25] MEDS: TAMSULOSIN 0.4 MG CAP PO SCH (08:33)
[2025-06-25] MEDS: PANTOPRAZOLE 40MG VIAL IV SCH (08:33)
[2025-06-25] MEDS: ATORVASTATIN 20 MG TAB PO SCH (08:33)
[2025-06-25] MEDS: DOCUSATE SODIUM 100 MG CAPSULE PO SCH (08:33)
[2025-06-25 08:54] LABS: ALT/SGPT 37.0 U/L (7.0-40); AST/SGOT 37.0 U/L (<34); CALCIUM LEVEL 7.5 MG/DL (8.3-10.6); CARBON DIOXIDE LEVEL 22.0 MMOL/L (20-31); CHLORIDE LEVEL 105.0 MMOL/L (98-107); CREATININE FOR GFR 1.06 MG/DL (0.70-1.30); GLOMERULAR FILTRATION RATE 70.5 (>35); POTASSIUM SERUM 4.3 MMOL/L (3.5-5.1); SODIUM LEVEL 138.0 MMOL/L (136-145)
[2025-06-25] MEDS ORDERED: MAGNESIUM OXIDE 400 MG TAB PO SCH (09:00)
[2025-06-25] MEDS ORDERED: LOSARTAN 50 MG TABLET PO SCH (09:00)
[2025-06-25] MEDS ORDERED: LanTUS (INSULIN GLARGINE INJ) 1 UNITS/0.01 ML SC SCH (09:00)
[2025-06-25 11:44] VITALS: BP 149/57; TEMP 98.6; O2SAT 93
[2025-06-25] MEDS ORDERED: SUCRALFATE 1 GM TAB PO SCH (13:45)
[2025-06-25 20:11] VITALS: BP 148/58; TEMP 98.6; O2SAT 94
[2025-06-25] MEDS: LanTUS (INSULIN GLARGINE INJ) 1 UNITS/0.01 ML SC SCH (20:14)
[2025-06-25] MEDS: OMEPRAZOLE 20MG CAP PO SCH (20:15)
[2025-06-26 03:26] VITALS: BP 167/64; TEMP 98.8; O2SAT 92
[2025-06-26 06:14] LABS: BASO # 0.1 10^3/uL (0.0-0.2); BASO % 0.5 % (0.0-1.0); EOS # 0.3 10^3/uL (0.0-0.5); EOS % 3.0 % (0.0-3.0); LYMPH # 0.7 10^3/uL (1.5-5.0); LYMPH % 6.7 % (24.0-44.0); MONO # 1.8 10^3/uL (0.0-0.8); MONO % 17.0 % (2.0-8.0); NEUTROPHILS # 7.5 10^3/uL (1.5-8.5); NEUTROPHILS % 71.2 % (36.0-66.0); PLATELET COUNT, AUTOMATED 269 10^3/uL (150-450)
[2025-06-26 06:36] LABS: CALCIUM LEVEL 7.9 MG/DL (8.3-10.6); CARBON DIOXIDE LEVEL 24.0 MMOL/L (20-31); CHLORIDE LEVEL 106.0 MMOL/L (98-107); CREATININE FOR GFR 0.91 MG/DL (0.70-1.30); GLOMERULAR FILTRATION RATE 84.7 (>35); POTASSIUM SERUM 3.9 MMOL/L (3.5-5.1); SODIUM LEVEL 139.0 MMOL/L (136-145)
[2025-06-26] MEDS: MAGNESIUM OXIDE 400 MG TAB PO SCH (09:24)
[2025-06-26 09:26] VITALS: BP 165/80
[2025-06-26] MEDS: LOSARTAN 50 MG TABLET PO SCH (09:27)
[2025-06-26] MEDS ORDERED: SUCR1TA PO (11:52)
[2025-06-26] MEDS ORDERED: OMEP-173 PO (11:52)
[2025-06-26] MEDS ORDERED: COLA100C5 PO (11:52)
[2025-06-26] MEDS ORDERED: FERR325T3 PO (11:53)
[2025-06-26] MEDS ORDERED: SENN8.6T58 PO (11:54)
[2025-06-26] MEDS: CEPACOL LOZENGE PO PRN (12:02)
== END 2025-06-26 13:30 | disposition home or self-care (01) ==
LOC: M ED 19:53 → M ED INP 19:54 → INTOOBSV 06-25 02:33 → UNDOADMOB 06-25 02:33 → M ED INP 06-25 11:42 → M MSPAV 06-25 11:42 → UNDODISOB 06-26 13:30
PROVIDERS: ADMIT Student in an Organized Health Care Education/Training Program; ATTEND Internal Medicine
DX: K92.2 Gastrointestinal hemorrhage, unspecified (principal); D50.9 Iron deficiency anemia, unspecified; C34.90 Malignant neoplasm of unspecified part of unspecified bronchus or lung; C79.51 Secondary malignant neoplasm of bone; C78.7 Secondary malignant neoplasm of liver and intrahepatic bile duct; R53.1 Weakness; R19.5 Other fecal abnormalities; E83.51 Hypocalcemia; R10.13 Epigastric pain; E11.65 Type 2 diabetes mellitus with hyperglycemia; I11.0 Hypertensive heart disease with heart failure; I25.10 Atherosclerotic heart disease of native coronary artery without angina pectoris; I25.2 Old myocardial infarction; I50.32 Chronic diastolic (congestive) heart failure; K21.9 Gastro-esophageal reflux disease without esophagitis; K44.9 Diaphragmatic hernia without obstruction or gangrene; N40.0 Benign prostatic hyperplasia without lower urinary tract symptoms; Z86.73 Personal history of transient ischemic attack (TIA), and cerebral infarction without residual deficits; J44.9 Chronic obstructive pulmonary disease, unspecified; R63.8 Other symptoms and signs concerning food and fluid intake; R26.9 Unspecified abnormalities of gait and mobility; R05.8 Other specified cough; Z90.49 Acquired absence of other specified parts of digestive tract; Z90.89 Acquired absence of other organs; Z98.61 Coronary angioplasty status; Z87.891 Personal history of nicotine dependence; Z88.0 Allergy status to penicillin; Z88.2 Allergy status to sulfonamides; Z79.899 Other long term (current) drug therapy; Z79.84 Long term (current) use of oral hypoglycemic drugs; Z79.4 Long term (current) use of insulin; Z79.85 Long-term (current) use of injectable non-insulin antidiabetic drugs; Z79.02 Long term (current) use of antithrombotics/antiplatelets; Z79.82 Long term (current) use of aspirin
CPT/HCPCS: 36415; 71045; 80048; 80053; 81001; 82550; 82553; 83036; 84484; 85025; 85027; 85610; 85730; 86850; 86900; 86901; 93005; 96361; 96374; 96376; 99285; G0378; J1815; J2470

== ENCOUNTER → 2025-07-02 | Outpatient (REF) | payer MEDICARE, OTHER ==
[~2025-07-02] MED LIST changes: +ASPI81TA26 PO; +COLA100C5 PO; +FERR325T3 PO; +SENN8.6T58 PO; +SUCR1TA PO
[2025-07-02 12:42] LABS: APPEARANCE, URINE CLEAR (CLEAR); BACTERIA, URINE AUTO NEGATIVE (NEGATIVE); BILIRUBIN, URINE AUTO NEGATIVE (NEGATIVE); BLOOD, URINE BLOOD NEGATIVE (NEGATIVE); GLUCOSE, URINE (UA) AUTO NEGATIVE (NEGATIVE); KETONE, URINE AUTO NEGATIVE (NEGATIVE); LEUKOCYTE ESTERASE, URINE AUTO NEGATIVE (NEGATIVE); NITRITE, URINE AUTO NEGATIVE (NEGATIVE); PROTEIN, URINE AUTO NEGATIVE (NEGATIVE); RBC, URINE AUTO 0 /HPF (0-3); SPECIFIC GRAVITY URINE AUTO 1.005 (1.002-1.035); SQUAMOUS EPITHELIAL CELL UR AU 0 /HPF (0-6); UROBILINOGEN, URINE AUTO 0.2 mg/dL (0.0-2.0); WBC, URINE AUTO 1 /HPF (0-3)
[2025-07-02 12:56] LABS: FREE T4 1.13 NG/DL (0.89-1.76); VITAMIN B12 LEVEL 834.0 PG/ML (211-911)
[2025-07-02 12:57] LABS: PLATELET COUNT, AUTOMATED 349 10^3/uL (150-450)
[2025-07-02 12:58] LABS: ALT/SGPT 23.0 U/L (7.0-40); AST/SGOT 16.0 U/L (<34); CALCIUM LEVEL 8.6 MG/DL (8.3-10.6); CARBON DIOXIDE LEVEL 28.0 MMOL/L (20-31); CHLORIDE LEVEL 106.0 MMOL/L (98-107); CHOLESTEROL LEVEL 104.0 MG/DL (<200); CHOLESTEROL RISK RATIO 2.79 (<5); CREATININE FOR GFR 1.34 MG/DL (0.70-1.30); GLOMERULAR FILTRATION RATE 53.2 (>35); LDL CHOLESTEROL 51.0 MG/DL (<100); NON-HDL-C 66.8 MG/DL; POTASSIUM SERUM 4.9 MMOL/L (3.5-5.1); SODIUM LEVEL 143.0 MMOL/L (136-145); TRIGLYCERIDES LEVEL 79.0 MG/DL (<150)
[2025-07-02 13:10] LABS: ESTIMATED AVERAGE GLUCOSE 186.0 MG/DL (60-110)
[2025-07-02 13:20] LABS: CREATININE, URINE 24.8 MG/DL; MALB URINE SIEMENS 4.0 MG/L; MAU/CREAT RATIO 16.1 MCG/MG (0.0-30.0)
== END ==
LOC: M LABDRAWC 11:48
PROVIDERS: ATTEND General Practice
DX: E11.9 Type 2 diabetes mellitus without complications (principal); D64.9 Anemia, unspecified; F32.9 Major depressive disorder, single episode, unspecified; E78.00 Pure hypercholesterolemia, unspecified

== ENCOUNTER 2025-07-11 14:18 | Inpatient (IN) | payer MEDICARE, OTHER ==
[~2025-07-11] VITALS: Ht 175.3 cm; Wt 83.5 kg
[2025-07-11 14:43] LABS: VENOUS BASE EXCESS -5.8 (-2.0-2.0); VENOUS HCO3 18.5 MMOL/L (23.0-27.0); VENOUS O2 SATURATION 90.2 % (60.0-80.0); VENOUS PARTIAL PRESSURE CO2 32.0 mmHg (38.0-50.0); VENOUS PARTIAL PRESSURE O2 66.0 mmHg (30.0-50.0); VENOUS PH 7.380 UNITS (7.330-7.430); VENOUS STANDARD HCO3 19.5 MMOL/L; VENOUS TOTAL CO2 19.5 MMOL/L (24.0-28.0)
[2025-07-11] MEDS: NS (Normal Saline) 0.9% 1,000 ML IV SCH (14:46)
[2025-07-11 15:13] LABS: BASO # 0.0 10^3/uL (0.0-0.2); BASO % 0.5 % (0.0-1.0); EOS # 0.1 10^3/uL (0.0-0.5); EOS % 1.3 % (0.0-3.0); LYMPH # 0.7 10^3/uL (1.5-5.0); LYMPH % 10.4 % (24.0-44.0); MONO # 0.5 10^3/uL (0.0-0.8); MONO % 8.5 % (2.0-8.0); NEUTROPHILS # 5.0 10^3/uL (1.5-8.5); NEUTROPHILS % 78.5 % (36.0-66.0); PLATELET COUNT, AUTOMATED 312 10^3/uL (150-450)
[2025-07-11 15:28] LABS: OSMOLALITY SERUM 321.0 MOSM/KG (280-301)
[2025-07-11 15:33] LABS: ALT/SGPT 21.0 U/L (7.0-40); AST/SGOT 34.0 U/L (<34); CALCIUM LEVEL 7.9 MG/DL (8.3-10.6); CARBON DIOXIDE LEVEL 20.0 MMOL/L (20-31); CHLORIDE LEVEL 106.0 MMOL/L (98-107); CREATININE FOR GFR 2.74 MG/DL (0.70-1.30); GLOMERULAR FILTRATION RATE 22.6 (>35); POTASSIUM SERUM 5.9 MMOL/L (3.5-5.1); SODIUM LEVEL 139.0 MMOL/L (136-145)
[2025-07-11] MEDS ORDERED: GLUCAGON INJ 1 MG VIAL SC PRN (17:45)
[2025-07-11] MEDS ORDERED: MAALOX 30 ML SUSP *UDC PO PRN (17:45)
[2025-07-11] MEDS ORDERED: GLUCOSE 4 GM CHEW PO PRN (17:45)
[2025-07-11] MEDS ORDERED: DEXTROSE 50% 50 ML SYRINGE IV PRN (17:45)
[2025-07-11 18:01] LABS: KETONE, URINE AUTO RFX NEGATIVE (NEGATIVE); LEUKOCYTE ESTERASE UR AUTO RFX NEGATIVE (NEGATIVE); MUCUS, URINE RFX SMALL (NEGATIVE); NITRITE, URINE AUTO RFX NEGATIVE (NEGATIVE); RBC, URINE AUTO RFX 1 /HPF (0-3); SQUAM EPITHELIAL CELL UR AURFX 1 /HPF (0-6); TRANSITIONAL EPITHELIAL AU RFX <1 /HPF; WBC, URINE AUTO RFX 6 /HPF (0-3)
[2025-07-11] MEDS ORDERED: VITA500T10 PO (18:21)
[2025-07-11] MEDS ORDERED: FERR325T19 PO (18:21)
[2025-07-11] MEDS ORDERED: HOME MED LIST COMPLETE! XX SCH (18:25)
[2025-07-11] MEDS ORDERED: SENNA 8.6 MG TAB PO PRN (18:45)
[2025-07-11] MEDS ORDERED: NITROGLYCERIN 0.4 MG SUBL TABLET SL PRN (18:45)
[2025-07-11 19:52] LABS: APPEARANCE, BODY FLUID HAZY (CLEAR); PLEURAL FL COLOR PALE YELLOW (COLORLESS); SOURCE, BODY FLUID PLEURAL
[2025-07-11 20:00] VITALS: BP 128/62; O2SAT 89
[2025-07-11 20:03] VITALS: BP 136/65; O2SAT 87
[2025-07-11 20:17] VITALS: BP 130/60; TEMP 97.6; O2SAT 89
[2025-07-11] MEDS: SOD POLYSTYRENE SULFONATE SUSP 15GM 60ML UD PO ONE (20:38)
[2025-07-11] MEDS: INSULIN LISPRO (NovoLOG) PER UNIT SC SCH (20:39)
[2025-07-11] MEDS: SUCRALFATE 1 GM TAB PO SCH (20:40)
[2025-07-11] MEDS: OMEPRAZOLE 20MG CAP PO SCH (20:40)
[2025-07-11 21:00] VITALS: O2SAT 93
[2025-07-11] MEDS: DOCUSATE SODIUM 100 MG CAPSULE PO SCH (21:00)
[2025-07-11] MEDS: guaiFENesin ER TABLET 600 MG TAB PO SCH (21:25)
[2025-07-11] MEDS: MAGNESIUM OXIDE 400 MG TAB PO SCH (21:25)
[2025-07-11] MEDS: TAMSULOSIN 0.4 MG CAP PO SCH (21:25)
[2025-07-11] MEDS: ASPIRIN 81 MG ENTERIC TABLET PO SCH (21:25)
[2025-07-11] MEDS: FERROUS SULFATE 325 MG TAB PO SCH (21:26)
[2025-07-11] MEDS: FINASTERIDE 5 MG TAB PO SCH (21:26)
[2025-07-12 00:11] VITALS: BP 152/68; TEMP 98.3; O2SAT 93
[2025-07-12 04:31] VITALS: BP 125/60; TEMP 97.6; O2SAT 97
[2025-07-12 05:35] LABS: BASO # 0.0 10^3/uL (0.0-0.2); BASO % 0.4 % (0.0-1.0); EOS # 0.0 10^3/uL (0.0-0.5); EOS % 0.5 % (0.0-3.0); LYMPH # 0.6 10^3/uL (1.5-5.0); LYMPH % 7.5 % (24.0-44.0); MONO # 0.7 10^3/uL (0.0-0.8); MONO % 8.7 % (2.0-8.0); NEUTROPHILS # 6.3 10^3/uL (1.5-8.5); NEUTROPHILS % 82.5 % (36.0-66.0); PLATELET COUNT, AUTOMATED 249 10^3/uL (150-450)
[2025-07-12 06:04] LABS: FREE T4 1.21 NG/DL (0.89-1.76)
[2025-07-12 06:05] LABS: ALT/SGPT 19.0 U/L (7.0-40); AST/SGOT 18.0 U/L (<34); CALCIUM LEVEL 7.7 MG/DL (8.3-10.6); CARBON DIOXIDE LEVEL 23.0 MMOL/L (20-31); CHLORIDE LEVEL 110.0 MMOL/L (98-107); CREATININE FOR GFR 3.18 MG/DL (0.70-1.30); GLOMERULAR FILTRATION RATE 18.9 (>35); MAGNESIUM LEVEL 2.0 MG/DL (1.8-2.4); POTASSIUM SERUM 5.4 MMOL/L (3.5-5.1); SODIUM LEVEL 144.0 MMOL/L (136-145)
[2025-07-12 07:00] VITALS: O2SAT 96
[2025-07-12 07:30] VITALS: O2SAT 93
[2025-07-12 08:00] VITALS: BP 129/63; TEMP 98.8; O2SAT 94
[2025-07-12 08:30] VITALS: O2SAT 94
[2025-07-12] MEDS: INSULIN LISPRO (NovoLOG) PER UNIT SC SCH (09:00)
[2025-07-12] MEDS ORDERED: MULTIVITAMINS/MINERALS THERAP 1 TAB PO SCH (09:00)
[2025-07-12] MEDS: INSULIN GLARGINE-YFGN 1 UNITS/0.01 ML SC SCH (10:01)
[2025-07-12] MEDS: HEPARIN SOD 5000 UNITS/ML 1 ML VIAL/SYRINGE SC SCH (10:02)
[2025-07-12] MEDS: MAGNESIUM OXIDE 400 MG TAB PO SCH (10:03)
[2025-07-12] MEDS: ATORVASTATIN 20 MG TAB PO SCH (10:03)
[2025-07-12] MEDS: PATIROMER SORBITEX CALCIUM 8.4GM POWDER PACKET PO ONE (10:05)
[2025-07-12] MEDS: NS (Normal Saline) 0.9% 1,000 ML IV SCH (10:27)
[2025-07-12] MEDS: PATIROMER SORBITEX CALCIUM 8.4GM POWDER PACKET PO SCH (10:28)
[2025-07-12 11:57] LABS: C REACTIVE PROTEIN QUANTITATIV 3.7 MG/DL (<1.0)
[2025-07-12 11:58] LABS: C REACTIVE PROTEIN QUANTITATIV 1.71 MG/DL (<1.0)
[2025-07-12] MEDS ORDERED: SALIVA SUBSTITUTE BTL MT PRN (12:10)
[2025-07-12] MEDS ORDERED: ONDANSETRON 4MG ORAL DISINTEGRATING TAB PO PRN (12:10)
[2025-07-12] MEDS ORDERED: ATROPINE SULFATE 1% OPHTH SOLN 2 ML BTL SL PRN (12:10)
[2025-07-12] MEDS: LORazepam 1 MG TAB PO SCH (21:38)
[2025-07-14] MEDS: LanTUS (INSULIN GLARGINE INJ) 1 UNITS/0.01 ML SC SCH (09:20)
[2025-07-14] MEDS: BENZONATATE 100 MG CAPSULE PO PRN (13:07)
[2025-07-14] MEDS: HYOSCYAMINE SULFATE 0.125 MG SUBL TABLET SL PRN (18:15)
[2025-07-14] MEDS: ACETAMINOPHEN 325 MG TAB PO PRN (20:06)
[2025-07-15] MEDS ORDERED: METAMUCIL PACKET PO PRN (10:05)
[2025-07-15] MEDS: MOM 30 ML SUSPENSION UDC PO PRN (10:23)
[2025-07-15] MEDS: SENNOSIDES/DOCUSATE SODIUM 8.6 MG/50MG TAB PO SCH (10:24)
[2025-07-15] MEDS: LORazepam 1 MG TAB PO PRN (14:59)
[2025-07-16] MEDS: MORPHINE 10 MG/0.5 ML ORAL CONCENTRATE SOLUTION U/D SL PRN (06:02)
[2025-07-16 13:43] VITALS: TEMP 98.6
[2025-07-16] MEDS: MIDAZOLAM INJ 2 MG/2 ML VIAL IV PRN (16:38)
[2025-07-16] MEDS: ceFAZolin SODIUM 2 GM in DEXTROSE 5% (D5W) ADV/MINI-BAG 50 ML IV ONE (16:39)
[2025-07-16] MEDS: SODIUM CHLORIDE 0.9% 1000 ML XX SCH (16:39)
[2025-07-16] MEDS: NS (Normal Saline) 0.9% 1,000 ML IV SCH (16:39)
[2025-07-16] MEDS: LIDOCAINE 1% MDV 20 ML VIAL SC SCH (17:14)
[2025-07-16 17:15] VITALS: BP 150/6; O2SAT 93
[2025-07-16 21:15] VITALS: BP 167/59
[2025-07-17] MEDS: MORPHINE 10 MG/0.5 ML ORAL CONCENTRATE SOLUTION U/D SL PRN (12:19)
[2025-07-17] MEDS: guaiFENesin/CODEINE SYRUP 5 ML UDC PO PRN (20:17)
[2025-07-18] MEDS: MORPHINE 10 MG/0.5 ML ORAL CONCENTRATE SOLUTION U/D SL SCH (11:02)
[2025-07-19] MEDS: LORazepam 0.5 MG TAB PO PRN (18:08)
[2025-07-20] MEDS ORDERED: MORP1SOL5 PO (07:06)
[2025-07-20] MEDS ORDERED: ATIV1TAB10 PO (07:06)
[2025-07-20] MEDS ORDERED: HYOS125TA PO (07:07)
[2025-07-20] MEDS: POLYVINYL ALCOHOL OPHTH SOLN 15ML (LIQUITEARS) OU PRN (11:56)
== END 2025-07-20 12:25 | disposition hospice, home (50) | DRG 186 ==
LOC: M ED 15:02 → M ED INP 17:41 → M ICU 20:06 → M MSPAV 07-12 15:34
PROVIDERS: ADMIT Internal Medicine; ATTEND Internal Medicine
PROC: 0W9930Z Drainage of Right Pleural Cavity with Drainage Device, Percutaneous Approach (ICD-10-PCS; principal; 2025-07-11)
PROC: B246ZZZ Ultrasonography of Right and Left Heart (ICD-10-PCS; 2025-07-12)
PROC: 0W9930Z Drainage of Right Pleural Cavity with Drainage Device, Percutaneous Approach (ICD-10-PCS; 2025-07-16)
DX: J90 Pleural effusion, not elsewhere classified (principal); J96.01 Acute respiratory failure with hypoxia; J18.9 Pneumonia, unspecified organism; N17.9 Acute kidney failure, unspecified; C78.7 Secondary malignant neoplasm of liver and intrahepatic bile duct; C79.51 Secondary malignant neoplasm of bone; I50.32 Chronic diastolic (congestive) heart failure; C34.90 Malignant neoplasm of unspecified part of unspecified bronchus or lung; J98.11 Atelectasis; R60.0 Localized edema; N40.0 Benign prostatic hyperplasia without lower urinary tract symptoms; E87.5 Hyperkalemia; D63.8 Anemia in other chronic diseases classified elsewhere; Z51.5 Encounter for palliative care; Z66 Do not resuscitate; I11.0 Hypertensive heart disease with heart failure; E11.9 Type 2 diabetes mellitus without complications; J44.9 Chronic obstructive pulmonary disease, unspecified; R63.4 Abnormal weight loss; I25.2 Old myocardial infarction; E78.5 Hyperlipidemia, unspecified; I25.10 Atherosclerotic heart disease of native coronary artery without angina pectoris; K21.9 Gastro-esophageal reflux disease without esophagitis; G89.29 Other chronic pain; M54.9 Dorsalgia, unspecified; Z90.49 Acquired absence of other specified parts of digestive tract; Z86.73 Personal history of transient ischemic attack (TIA), and cerebral infarction without residual deficits; Z79.82 Long term (current) use of aspirin; Z79.4 Long term (current) use of insulin; Z79.899 Other long term (current) drug therapy; Z88.0 Allergy status to penicillin; Z88.2 Allergy status to sulfonamides; Z87.891 Personal history of nicotine dependence